=== PATIENT | female | born 1960 | race Caucasian/White ===

== ENCOUNTER 2020-06-15 13:19 | Observation (INO) ==
--- OUTSIDE RECORDS SUMMARY | 2020-06-15 13:21 | External Medical Summary | Continuity of Care Document ---
:1960 Author Name Chris Saavedra, Provider Address Unavailable Unavailable , Care Team Providers Name Role Phone Unavailable Unavailable Unavailable CAROL FRANK Unavailable Unavailable Problems Active medical history not documented Allergies and Adverse Reactions No Known Drug Allergies (Allergy) Medications BenzaClin 1-5 % External Gel MArturoDArturo Refills: 0 Procedures Procedures not documented Immunizations Immunizations not documented Plan of Treatment Planned Observations Planned Goals not documented Results No Known Results Results not documented
--- NOTE | 2020-06-15 13:39 | Emergency Department Note ---
Impression & Plan Palpitations ED Provider Note Provider: Chu Fowler MD DATE OF SERVICE:06/15/2020 CHIEF COMPLAINT: Palpitations HISTORY OF PRESENT ILLNESS: Patient is a 59-year-old female without significant past medical history presenting here today stating that since around 9:00 last night she has had some intermittent fluttering and palpitations in her chest. Denies actual chest pain or shortness of breath. No syncope or near syncope. Denies any abdominal pain nausea or other abnormality. Patient states she is feeling okay but having this odd sensation. Denies any significant use of caffeine or energy drinks. States she had a little bit of wine last night but no significant amount. Denies a history of similar. Patient does report a family history of atrial fibrillation with her mother who is on Coumadin. Patient states several weeks ago she traveled to [place] to visit her son but denies any leg swelling. REVIEW OF SYSTEMS: A total of 10 review of systems was obtained and negative except as stated above in the HPI. PAST MEDICAL HISTORY: As noted above MEDICATIONS: Denies SOCIAL HISTORY: Non-smoker, rare alcohol PHYSICAL EXAM: GENERAL: alert and oriented in no acute distress on stretcher Head: normocephalic and atraumatic EYES: No injection, discharge or icterus. NECK: Trachea midline. LUNGS: Airway patent. No retractions. Breath sounds clear with good air entry bilaterally. HEART: Irregular tachycardic rate and rhythm. No chest wall tenderness ABDOMEN: Soft and non-tender, without guarding or rebound. SKIN: Acyanotic, warm, dry, without rashes EXTREMITIES: Without swelling, tenderness or deformity NEUROLOGICAL: No focal deficits. No aphasia. No facial droop or slurred speech. EK bpm initially in sinus rhythm and then in either atrial fibrillation with RVR versus multiple repetitive PACs. No acute ST segment elevation noted. Normal QRS. CONTINUOUS CARDIAC MONITORING: was ordered and showed a heart rate of 40's-140's bpm in variable sinus bradycardia normal sinus rhythm to atrial fibrillation with rapid ventricular response versus PACs Patient's laboratory studies and imaging reviewed. Differential includes Premature contractions, electrolyte abnormality, cardiac dysrhythmia, thyroid dysfunction, pulmonary embolism, infection, gastr ointestinal, as well as other pathologies. IMPRESSION/MEDICAL DECISION MAKING: Patient presents complaining of palpitations since last night and appears to have new onset of atrial fibrillation with a highly irregular rate. She is in intermittently in rapid ventricular response A. fib versus very frequent PACs and then at a heart rate in the 60s at some points into the 40s. Patient luckily not significantly symptomatic at this point beyond the fluttering palpitation sensation. Basic labs including electrolytes and thyroid study was sent. No significant leukocytosis or anemia. No significant evidence of potassium or magnesium derangement. Troponin undetectable. TSH within normal limits. Chest x-ray without acute pathology per radiology. Discussed with Dr. Kellogg of cardiology case. He recommended observation here in the hospital upon reviewing telemetry and EKG. Will optimize potassium with a small amount of potassium and he states he would likely trial a short acting small amount of metoprolol to see if this helps with symptoms. Discussed with the patient was updated again only having some symptoms of palpitations. She is in agreement with the plan and the hospitalist be contacted for further observation here. DIAGNOSIS: Palpitations DISPOSITION: Hospitalist will evaluate Patient was agreeable with this plan. Past Med/Surg History Medical History No significant past medical history Surgical History Congenital malrotation of intestine Delivery by section Family History Mother Atrial fibrillation Social History Smoking Status: Never smoker Hx Alcohol Use: Yes Alcohol type: wine Alcohol Intake Frequency: 2-3 x/Week Feels Safe at Home: Yes Allergies Allergies Allergy/AdvReac Type Severity Reaction Status Date / Time No Known Allergies Allergy Unverified 06/15/20 14:12 Home Meds Home Medications Medication Instructions Recorded Confirmed conjugated estrogens [Premarin] 1 applic VAGINAL WK 06/15/20 06/15/20 Results & Data (ED) Vital Signs Vital Signs - 24 hr 06/15/20 13:21 06/15/20 13:33 06/15/20 13:59 Temperature 36.7 C Temperature Source Oral Pulse Rate 56 L 91 H 77 Pulse Rate from SpO2 Sensor 68 60 Respiratory Rate 18 18 16 Blood Pressure 153/98 H 160/94 H Blood Pressure Mean 116 128 Pulse Oximetry 99 98 100 Sepsis Recent Fever Within 48 Hours No Sepsis New/Unexplained Change in Mental Status No Sepsis Action Taken by Nursing No Action Required 06/15/20 14:00 06/15/20 14:01 Temperature Temperature Source Pulse Rate 77 96 H Pulse Rate from SpO2 Sensor 58 L 57 L Respiratory Rate 18 13 Blood Pressure 132/76 Blood Pressure Mean 92 Pulse Oximetry 100 99 Sepsis Recent Fever Within 48 Hours Sepsis New/Unexplained Change in Mental Status Sepsis Action Taken by Nursing Laboratory Data Result diagrams: 06/15/20 13:31 06/15/20 13:31 Lab Results 06/15/20 06/15/20 Range/Units 13:31 13:31 WBC 5.66 (4.8-10.8) K/uL RBC 4.79 (4.2-5.4) M/uL Hgb 15.0 (12.0-16.0) g/dL Hct 44.5 (37-47) % MCV 92.9 (80-100) fL MCH 31.3 (25-34) pg MCHC 33.7 (32-36) g/dL RDW Std Deviation 42.3 (36.4-46.3) fL RDW Coeff of Paul 12.5 (11.5-14.5) % Plt Count 235 (130-400) K/uL MPV 9.2 (7.4-10.4) fL Immature Gran % (Auto) 0.0 % Neut % (Auto) 46.0 % Lymph % (Auto) 44.3 % [place] % (Auto) 8.8 % Eos % (Auto) 0.7 % Baso % (Auto) 0.2 % Neut # (Auto) 2.60 (1.4-6.5) K/uL Lymph # (Auto) 2.51 (1.2-3.4) K/uL [place] # (Auto) 0.50 (0.11-0.59) K/uL Eos # (Auto) 0.04 (0-0.5) K/uL Baso # (Auto) 0.01 (0-0.2) K/uL Immature Gran # (Auto) 0.00 (0.00-0.02) K/uL Sodium 140 (136-145) mmol/L Potassium 3.7 (3.5-5.1) mmol/L Chloride 108 H (98-107) mmol/L Carbon Dioxide 27 (21-32) mmol/L Anion Gap 6.0 (3-11) BUN 15 (7-18) mg/dl Creatinine 0.77 (0.6-1.2) mg/dl Est Cr Clr Drug Dosing 81.0 ml/min Est GFR ( Amer) 98.6 Est GFR (Non-Af Amer) 85.1 BUN/Creatinine Ratio 19.5 (10-20) Glucose 92 (70-99) mg/dl Calcium 9.7 (8.5-10.1) mg/dl Magnesium 2.3 (1.8-2.4) mg/dl Total Bilirubin 0.6 (0.2-1) mg/dl AST 21 (15-37) U/L ALT 27 (12-78) U/L Alkaline Phosphatase 71 (45-117) U/L Troponin I < 0.015 (0-0.045) ng/ml Total Protein 7.7 (6.4-8.2) gm/dl Albumin 4.0 (3.4-5.0) gm/dl Globulin 3.7 (2.5-4.0) gm/dl Albumin/Globulin Ratio 1.1 (0.9-2) TSH 1.050 (0.300-4.500) uIu/ml Administered Medications Discontinued Medications Metoprolol Tartrate (Metoprolol Tartrate 25 Mg Tab) 25 mg PO NOW ONE Stop: 06/15/20 14:21 Last Admin: 06/15/20 14:24 Dose: 25 mg Documented by: [id number] Potassium Chloride (Potassium Chloride 20 Meq Tabcr) 40 meq PO NOW STA Stop: 06/15/20 14:23 Last Admin: 06/15/20 14:25 Dose: 40 meq Documented by: [id number] Discharge Plan Visit Data Chief Complaint: Arrhythmia/Palpitations Stated Complaint: HEART PALPITATIONS ED Provider: Chu Fowler Discharge Problem: Palpitations Patient Disposition: Admitted As Inpatient Condition: Good Discharge Instructions Interventions: ED Discharge Assessment Last Done: 06/15/20 15:38
[2020-06-15 13:51] LABS: Hematocrit (blood only) 44.5 % (37-47); Mean Corpuscular Volume 92.9 fL (80-100); Red Blood Count 4.79 M/uL (4.2-5.4); White Blood Count 5.66 K/uL (4.8-10.8)
[2020-06-15 13:52] LABS: Basophils # (auto) 0.01 K/uL (0-0.2); Basophils % (auto) 0.2 %; Eosinophils # (auto) 0.04 K/uL (0-0.5); Eosinophils % (auto) 0.7 %; Lymphocytes # (auto) 2.51 K/uL (1.2-3.4); Lymphocytes % (auto) 44.3 %; Mean Corpuscular Hemoglobin 31.3 pg (25-34); Mean Corpuscular Hgb Conc 33.7 g/dL (32-36); Mean Platelet Volume 9.2 fL (7.4-10.4); Monocytes % (auto) 8.8 %; Platelet Count 235 K/uL (130-400); RDW Coefficient of Variation 12.5 % (11.5-14.5); RDW Standard Deviation 42.3 fL (36.4-46.3)
[2020-06-15 14:07] LABS: Alanine Aminotransferase 27 U/L (12-78); Aspartate Aminotransferase 21 U/L (15-37); BUN Creatinine Ratio 19.5 (10-20); Blood Urea Nitrogen 15 mg/dl (7-18); Calcium 9.7 mg/dl (8.5-10.1); Carbon Dioxide 27 mmol/L (21-32); Chloride 108 mmol/L (98-107); Est GFR (African American) 98.6; Est GFR (Non-African American) 85.1; Glucose 92 mg/dl (70-99); Magnesium 2.3 mg/dl (1.8-2.4); Potassium 3.7 mmol/L (3.5-5.1); Sodium 140 mmol/L (136-145)
[2020-06-15 14:18] LABS: Albumin Globulin Ratio 1.1 (0.9-2); Alkaline Phosphatase 71 U/L (45-117); Bilirubin,Total 0.6 mg/dl (0.2-1); Globulin 3.7 gm/dl (2.5-4.0); Total Protein 7.7 gm/dl (6.4-8.2); Troponin I < 0.015 ng/ml (0-0.045)
[2020-06-15] MEDS ORDERED: METOPROLOL TARTRATE 25 MG TAB PO ONE (14:20)
[2020-06-15] MEDS ORDERED: POTASSIUM CHLORIDE 20 MEQ TABCR PO STA (14:22)
--- NOTE | 2020-06-15 14:28 | Electrocardiogram Report ---
Test Reason : Blood Pressure : / mmHG Vent. Rate : 138 BPM Atrial Rate : 166 BPM P-R Int : 000 ms QRS Dur : 084 ms QT Int : 326 ms P-R-T Axes : 000 083 065 degrees QTc Int : 493 ms Sinus rhythm with frequent , and consecutive Premature atrial complexes Nonspecific ST abnormality Abnormal ECG No previous ECGs available Confirmed by Edwar Rodriguez ([id number]) on 06/15/2020 2:28:13 PM Referred By: Allan Martin Confirmed By:Edwar Rodriguez
--- NOTE | 2020-06-15 15:01 | XRay Report ---
XR chest 1V portable CLINICAL HISTORY: palpitations COMPARISON STUDY: No previous studies for comparison. FINDINGS: Lung volumes are normal. Lungs are clear. There is no pneumothorax or pleural effusion. Car diac size is normal. Mediastinal contours are normal. There is no evidence for pulmonary edema. IMPRESSION: No acute cardiopulmonary findings. ACT 112: Negative or not required by law. Electronically signed by: Chele Sharp M.D. 06/15/2020 3:00 PM
--- NOTE | 2020-06-15 15:02 | History & Physical Report ---
Date of Service June 15, 2020 Assessment & Plan (1) Atrial fibrillation: This is a 59-year-old female with no known significant past medical history who presents with intermittent palpitations starting last evening around 9:00pm was found to have atrial fibrillation. -Became symptomatic with palpitations last night around 2100. EKG with heart rate of 138 bpm with sinus rhythm with frequent and consecutive PACs. Nonspecific ST abnormality -Afebrile, no leukocytosis. Potassium and magnesium within normal limits. TSH within normal limits. Initial troponin negative -Patient with family history of atrial fibrillation (mom). Denies any personal history or significant caffeine use. Drinks wine 2-3x/week -ED provider discussed with studio set up worker on-call, Dr. Kellogg, who recommends observing on telemetry -Given Lopressor 25mg PO x 1 in ED as well as potassium chloride 40mg PO x 1. HR ranging from 56-138 since arrival -2D echo ordered. Will repeat troponin once more. Monitor on telemetry. EKG in AM. Routine cardiology consult -Will discuss systemic anticoagulation with cardiology DVT Ppx: SCDs for now Code status: FULL PCP: Veronica Dispo: Observe med tele. Plan to return home once medically stable. Patient seen in collaboration with Dr. Ma. Please see addendum. History of Present Illness Primary Care Provider: Allan Martin MD This is a 59-year-old female with no known significant past medical history who presents with intermittent palpitations starting last evening around 9:00. Patient was in normal state of health and had a small amount of wine prior to developing palpitations. Denies any associated lightheadedness, visual changes, near syncope, chest pain or shortness of breath. Denies having symptoms like this in the past. Today denies any significant use of caffeine or energy drinks. Last traveled several weeks ago to [place]. Recent viral illnesses or tick bites. Does have family history of atrial fibrillation with mom on anticoagulation. Only medication is Premarin gel. Denies any fever, chills, cough, nausea, vomiting, abdominal pain, dysuria, diarrhea or constipation. Allergies Allergy/AdvReac Type Severity Reaction Status Date / Time No Known Allergies Allergy Unverified 06/15/20 14:12 Home Medications Home Medications Medication Instructions Recorded Confirmed Type conjugated estrogens [Premarin] 1 applic VAGINAL WK 06/15/20 06/15/20 History Past Med/Surg History Medical History No significant past medical history Surgical History Congenital malrotation of intestine Delivery by section Family History Mother Atrial fibrillation Social History Smoking Status: Never smoker Hx Alcohol Use: Yes Alcohol type: wine Alcohol Intake Frequency: 2-3 x/Week Feels Safe at Home: Yes Review of Systems Review of Systems: At least ten systems reviewed and negative except as noted in the HPI. Physical Exam Physical Exam: General Appearance: WD/WN, vitals as above, NAD, sitting up in bed, pleasant, conversing easily Head: normocephalic, atraumatic Eyes: normal inspection, PERRL, conjunctivae normal, anicteric sclerae ENT: external ear and nose normal, oropharynx normal Neck: normal visual inspection, trachea midline, no thyromegaly Respiratory: normal respiratory effort, lungs clear to auscultation, no wheeze, rales, rhonchi. No accessory muscle use Cardiovascular: irregular rate & rhythm, no murmur appreciated, normal peripheral pulses, no BLE edema. Vessels: no JVD Chest: normal inspection of chest Abdomen/GI: normal bowel sounds, soft, nontender, no hepatosplenomegaly Extremities/Musculoskeletal: no cyanosis or clubbing, extremities motor strength 5/5 Neurologic: PERRL, EOMI, accommodation nl, no face palsy, no dysarthria, CN's II-XI intact bilaterally and moves all extremities Psychiatric: A+Ox3, euthymic affect Skin: no rashes, normal color, warm/dry Results & Data Results & Data ([place]) Vital Signs (Past 12 Hours) Vital Signs Temp Pulse Resp BP Pulse Ox 06/15/20 14:01 96 H 13 132/76 99 06/15/20 14:00 77 18 100 06/15/20 13:59 77 16 100 06/15/20 13:33 91 H 18 160/94 H 98 06/15/20 13:21 36.7 C 56 L 18 153/98 H 99 Laboratory Results Short CBC 06/15/20 Range/Units 13:31 WBC 5.66 (4.8-10.8) K/uL Hgb 15.0 (12.0-16.0) g/dL Hct 44.5 (37-47) % Plt Count 235 (130-400) K/uL BMP 06/15/20 13:31 Sodium 140 Potassium 3.7 Chloride 108 H Carbon Dioxide 27 BUN 15 Creatinine 0.77 Glucose 92 Calcium 9.7 Cardiac Enzymes 06/15/20 Range/Units 13:31 Troponin I < 0.015 (0-0.045) ng/ml Liver Function 06/15/20 Range/Units 13:31 Total Bilirubin 0.6 (0.2-1) mg/dl AST 21 (15-37) U/L ALT 27 (12-78) U/L Alkaline Phosphatase 71 (45-117) U/L Albumin 4.0 (3.4-5.0) gm/dl Diagnostic Findings CXR: Pending ECG Indication: palpitations Rhythm: sinus rhythm Findings: + PAC Code Status & VTE Plan VTE Prophylaxis Plan VTE Prophylaxis will be ordered: Yes Supervising Physician Co-Signing Physician Notes I, Dr. Duncan Ma, have seen and examined the patient with physician professional nursing assistant and would like to comment that On physical exam General: no acute distress Heart: irregular rhythm Lungs: normal breath sounds, no wheezing Abdomen: soft, nontender, positive bowel sounds Extremities: no edema Assessment and Plan -This is a 59 year old female with no known personal cardiac history (There is family history of atrial fibrillation with her mother) and the patient started to experience palpitations that started on 06/14/2020 evening. -normal TSH -patient given oral potassium and oral metoprolol in the ED -observe on telemetry overnight, obtain echocardiogram, formal cardiology consultation pending -SCDs for now and defer to cardiology on choice of systemic anticoagulation -agree with other assessment and plans as documented by physician professional nursing assistant
[2020-06-15] MEDS ORDERED: POLYETHYLENE (MIRALAX) 17 GM PACK PO PRN (16:01)
[2020-06-15] MEDS ORDERED: ONDANSETRON INJ 2 MG/ML 2 ML VIAL IV PRN (16:01)
[2020-06-15] MEDS ORDERED: ACETAMINOPHEN 325 MG TAB PO PRN (16:01)
[2020-06-16 05:54] LABS: Hematocrit (blood only) 43.6 % (37-47); Hemoglobin 14.3 g/dL (12.0-16.0); Mean Corpuscular Hemoglobin 31.2 pg (25-34); Mean Corpuscular Hgb Conc 32.8 g/dL (32-36); Mean Corpuscular Volume 95.2 fL (80-100); Mean Platelet Volume 9.3 fL (7.4-10.4); Platelet Count 234 K/uL (130-400); RDW Coefficient of Variation 12.7 % (11.5-14.5); RDW Standard Deviation 44.4 fL (36.4-46.3); Red Blood Count 4.58 M/uL (4.2-5.4); White Blood Count 4.77 K/uL (4.8-10.8)
[2020-06-16 06:32] LABS: BUN Creatinine Ratio 16.5 (10-20); Creatinine Clr Calc Pharmacy 63.8 ml/min; Est GFR (African American) 81.7; Est GFR (Non-African American) 70.5; Potassium 4.9 mmol/L (3.5-5.1)
[2020-06-16] MEDS ORDERED: ATENOLOL 25 MG TABLET PO SCH (11:15)
--- NOTE | 2020-06-16 11:17 | Cardiology Consultation ---
Date of Consultation June 16, 2020 Assessment & Plan (1) Premature atrial contractions: The patient has been found to have frequent symptomatic supraventricular ectopy, and perhaps short salvos of supraventricular tachycardia. Although brief episodes of atrial fibrillation cannot be excluded, her [id number] score is only 1 for risk factor of "female "sex and therefore risk of cardioembolic stroke is felt to be low. The most recent guidelines suggest that the prophylactic benefit of aspirin and stroke prevention in such patients is negligible. I do not think her telemetry findings are suggestive of a tachycardia- bradycardia syndrome, as her relative bradycardia is consistent with her history of being very physically active. She has no lightheadedness or dizziness. No pauses or high-grade AV block noted this morning. And although her morning EKG revealed sinus bradycardia at 43 bpm, she was resting at that time. She had been treated with a dose of metoprolol tartrate yesterday and she felt that this perhaps improved her symptoms. We will proceed with a cautious trial of atenolol 25 mg by mouth daily. She was counseled that should she feel lightheaded or dizzy on this medication she may cut it in half and take 1/2 tablet. Cardiology follow-up to be pursued in [address] Kellogg or partner. History of Present Illness Attending Physician: Abdoulaye Campo MD History of Present Illness Idania Chahal is a 59 year old female seen in cardiology consultation per the request of Sabiha Meier PA-C of the [facility] for the evaluation of palpitations. The patient describes herself as having been in normal health until 2 evenings ago when she started noticing onset of palpitations. This was not associated with any particular emotional or physical stress or a change in her diet. She consistently consumes rare occasional alcohol in the form of wine, and 1 or a maximum of 2 cups of coffee per day. She describes having a sensation of feeling a "flutter "in her chest as well as a "pounding "sensation. Upon arrival to the emergency department yesterday afternoon she was found to have sinus rhythm, sinus arrhythmia, frequent premature atrial contractions, and short salvos of what I feel is supraventricular tachycardia. An EKG performed in the emergency department dated 06/15/2020 at 1328 exemplifies sinus rhythm with frequent consecutive premature atrial contractions. When she was in sinus rhythm, she had been observed to have a heart rate in the 40s yesterday. Telemetry overnight last night for the most part reveals sinus bradycardia in the range of 48 to 52 bpm. During sleep her heart rate was as low as the 30s, but once again sinus bradycardia with no AV block. She denies any history of lightheadedness, dizziness, syncope or near syncope. She describes herself as being physically active. 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 She has been exercising regularly running 3 miles per day 3 days/week and walking 3 days/week. SOCIAL HISTORY: She lives with her . She has 2 sons, one of which is in college, and one has finished college and is a young professional. She is a non-smoker. And as noted above, drinks 1 or maximum of 2 cups of coffee per day, and occasional wine. FAMILY HISTORY: She has a family history of atria fibrillation in her mother, who follows with Dr Sandra of our practice. Allergies Allergy/AdvReac Type Severity Reaction Status Date / Time No Known Allergies Allergy Unverified 06/15/20 14:12 Home Medications Home Medications Medication Instructions Recorded Confirmed Type conjugated estrogens [Premarin] 1 applic VAGINAL WK 06/15/20 06/15/20 History Patient History Medical History No significant past medical history Surgical History Congenital malrotation of intestine Delivery by section Family History Mother Atrial fibrillation Social History Smoking Status: Never smoker Hx Alcohol Use: Yes Alcohol type: wine Alcohol Intake Frequency: 2-3 x/Week Hx Substance Use: No Preferred Language: Upper Sorbian Communication Ability: Effective Mold Unloader Required: No Beliefs That Will Affect Care: None Current Living Situation: Spouse Other Information That Helps Us Care for You: No Feels Safe at Home: Yes Safety Concerns: Feels Safe At This Time Assistive Devices: None Review of Systems Review of Systems: All systems reviewed & are unremarkable except as noted in HPI & below Physical Exam Physical Exam: Temp Pulse Resp BP Pulse Ox 36.8 C 46 L 16 92/59 L 99 06/16/20 07:41 06/16/20 09:00 06/16/20 07:41 06/16/20 07:41 06/16/20 07:41 Constitutional: WD/WN, vitals as above Respiratory: normal respiratory effort, lungs clear to auscultation Cardiovascular: RRR, no murmur, no edema Gastrointestinal (Abdomen): normal bowel sounds, soft, nontender, no hepatosplenomegaly Musculoskeletal: no cyanosis or clubbing, extremities motor strength 5/5 Neurologic: PERRL, EOMI, accommodation nl, no face palsy, no dysarthria Results & Data ([facility]) Vital Signs (Past 12 Hours) Vital Signs Temp Pulse Pulse Resp BP Pulse Ox 06/16/20 09:00 46 L 06/16/20 07:41 36.8 C 60 16 92/59 L 99 06/16/20 04:00 36.5 C 60 18 101/64 97 06/16/20 01:53 44 L 06/15/20 23:08 36.6 C 59 L 18 108/64 96 Laboratory Results Cardiac Enzymes 06/15/20 06/15/20 Range/Units 13:31 19:32 AST 21 (15-37) U/L Troponin I < 0.015 < 0.015 (0-0.045) ng/ml CBC 06/15/20 06/16/20 Range/Units 13:31 05:32 WBC 5.66 4.77 L (4.8-10.8) K/uL RBC 4.79 4.58 (4.2-5.4) M/uL Hgb 15.0 14.3 (12.0-16.0) g/dL Hct 44.5 43.6 (37-47) % Plt Count 235 234 (130-400) K/uL Neut # (Auto) 2.60 (1.4-6.5) K/uL Lymph # (Auto) 2.51 (1.2-3.4) K/uL [place] # (Auto) 0.50 (0.11-0.59) K/uL Eos # (Auto) 0.04 (0-0.5) K/uL Baso # (Auto) 0.01 (0-0.2) K/uL Comprehensive Metabolic Panel 06/15/20 06/16/20 Range/Units 13:31 05:32 Sodium 140 140 (136-145) mmol/L Potassium 3.7 4.9 D (3.5-5.1) mmol/L Chloride 108 H 109 H (98-107) mmol/L Carbon Dioxide 27 32 (21-32) mmol/L BUN 15 15 (7-18) mg/dl Creatinine 0.77 0.90 (0.6-1.2) mg/dl Glucose 92 94 (70-99) mg/dl Calcium 9.7 9.0 (8.5-10.1) mg/dl AST 21 (15-37) U/L ALT 27 (12-78) U/L Alkaline Phosphatase 71 (45-117) U/L Total Protein 7.7 (6.4-8.2) gm/dl Albumin 4.0 (3.4-5.0) gm/dl Intake and Output 06/15/20 06/16/20 06/16/20 22:59 06:59 14:59 Intake Total 250 / 400 150 / 400 Balance 250 / 400 150 / 400 Intake: Oral 250 / 400 150 / 400 Other: Weight 70.845 kg 70.9 kg Weight Measurement Method Standing Scale Standing Scale Diagnostic Findings Presenting EKG as noted in the HPI, repeat EKG this morning sinus bradycardia at 43 bpm. Telemetry included episodes of sinus rhythm with sinus arrhythmia, frequent premature atrial contractions and premature atrial contractions in a pattern of atrial bigeminy. EKG performed this morning and reviewed independently revealed mild concentric left ventricular hypertrophy, with normal LV wall motion, LVEF in the range of 55 to 60%. Right ventricular chamber size and systolic function are normal. No significant valvular heart disease.
--- NOTE | 2020-06-16 13:17 | Electrocardiogram Report ---
Test Reason : Blood Pressure : / mmHG Vent. Rate : 043 BPM Atrial Rate : 043 BPM P-R Int : 184 ms QRS Dur : 094 ms QT Int : 466 ms P-R-T Axes : 064 084 074 degrees QTc Int : 393 ms Marked sinus bradycardia Abnormal ECG When compared with ECG of 15-JUN-2020 13:28, Significant changes have occurred Confirmed by Edwar Rodriguez ([id number]) on 06/16/2020 1:17:49 PM Referred By: Allan Martin Confirmed By:Edwar Rodriguez
--- NOTE | 2020-06-16 14:08 | Hospitalist Progress Note ---
Date of Service June 16, 2020 Assessment & Plan (1) Premature atrial contractions: This is a 59-year-old female with no known significant past medical history who presents with intermittent palpitations starting last evening around 9:00pm was found to have possible atrial fibrillation. -Atrial fibrillation has been ruled out -Became symptomatic with palpitations last night around 2100. EKG with heart rate of 138 bpm with sinus rhythm with frequent and consecutive PACs. Nonspecific ST abnormality -Afebrile, no leukocytosis. Potassium and magnesium within normal limits. TSH within normal limits. Initial troponin negative -Patient with family history of atrial fibrillation (mom). Denies any personal history or significant caffeine use. Drinks wine 2-3x/week -Received Lopressor 25mg PO x 1 in ED as well as potassium chloride 40mg PO x 1. HR ranging from 56-138 since arrival -2D echo showed-concentric LV hypertrophy, LV wall motion is normal with EF of 55 to 60%, LV diastolic function is not graded due to indeterminate Doppler data related to the irregular rhythm, RV chamber size and systolic function is normal and there is no significant valvular heart disease -She had cardiology input and recommendation -Remains in sinus rhythm today with bradycardia likely secondary to physical activity -Started on a small dose of beta-ruslan with atenolol 25 mg once a day -Remains free of symptoms and will be discharged this afternoon Admission and Anticipated Discharge Date Admission Date: June 15, 2020 Subjective 06/16/2020 The patient was seen and examined in medical telemetry unit She denies any symptoms of palpitation and/or shortness of breath while having chest pain She has been ambulating in the hallway and in the room without any symptoms She will be discharged home this afternoon Review of Systems Review of Systems: All systems reviewed and are unremarkable except as noted below Cardiovascular: no chest pain, no dyspnea and no palpitations Physical Exam Physical Exam: Lying in bed without any acute distress Constitutional: well developed and well nourished; no acute distress and not ill appearing Eyes: PERRL, conjunctivae normal, anicteric sclerae ENMT: external ear and nose normal, oropharynx normal Neck: trachea midline, no thyromegaly Respiratory: normal respiratory effort; no respiratory distress Auscultation: lungs clear to auscultation bilaterally Cardiovascular: Rate/Rhythm: regular rate and regular rhythm Heart Sounds: no murmur Gastrointestinal (Abdomen): Inspection/Auscultation: abdomen normal to inspection; abdomen not distended Percussion/Palpation: abdomen soft; abdomen nontender Musculoskeletal: No acute arthritis involving any joint Neurologic: moves all extremities; no focal motor deficits Psychiatric: A+Ox3, euthymic affect Lymphatic: no cervical or axillary lymphadenopathy Results & Data Results & Data ([facility]) Vital Signs (Past 12 Hours) Vital Signs Temp Pulse Pulse Resp BP Pulse Ox 06/16/20 11:46 65 20 101/63 06/16/20 11:19 36.6 C 65 16 92/60 L 97 06/16/20 09:00 46 L 06/16/20 07:41 36.8 C 60 16 92/59 L 99 06/16/20 04:00 36.5 C 60 18 101/64 97 Laboratory Results Short CBC 06/16/20 Range/Units 05:32 WBC 4.77 L (4.8-10.8) K/uL Hgb 14.3 (12.0-16.0) g/dL Hct 43.6 (37-47) % Plt Count 234 (130-400) K/uL [facility] 06/16/20 05:32 Sodium 140 Potassium 4.9 D Chloride 109 H Carbon Dioxide 32 BUN 15 Creatinine 0.90 Glucose 94 Calcium 9.0 Cardiac Enzymes 06/15/20 Range/Units 19:32 Troponin I < 0.015 (0-0.045) ng/ml Medications Administered Current Inpatient Medications Acetaminophen (Acetaminophen 325 Mg Tab) 650 mg PO Q4H PRN PRN Reason: Pain or Fever Stop: 07/15/20 16:00 Atenolol (Atenolol 25 Mg Tablet) [address] [facility] Stop: 07/16/20 11:14 Last Admin: 06/16/20 11:44 Dose: 25 mg Documented by: Polyethylene Glycol (Polyethylene (Miralax) 17 Gm Pack) 17 gm PO DAILY PRN PRN Reason: Constipation Stop: 07/15/20 16:00
--- NOTE | 2020-06-17 08:38 | Discharge Summary ---
Date of Service June 17, 2020 Admission HPI Per Admitting Provider This is a 59-year-old female with no known significant past medical history who presents with intermittent palpitations starting last evening around 9:00. Patient was in normal state of health and had a small amount of wine prior to developing palpitations. Denies any associated lightheadedness, visual changes, near syncope, chest pain or shortness of breath. Denies having symptoms like this in the past. Today denies any significant use of caffeine or energy drinks. Last traveled several weeks ago to [place]. Recent viral illnesses or tick bites. Does have family history of atrial fibrillation with mom on anticoagulation. Only medication is Premarin gel. Denies any fever, chills, cough, nausea, vomiting, abdominal pain, dysuria, diarrhea or constipation. Admission Exam Per Admitting Provider Physical Exam: General Appearance: WD/WN, vitals as above, NAD, sitting up in bed, pleasant, conversing easily Head: normocephalic, atraumatic Eyes: normal inspection, PERRL, conjunctivae normal, anicteric sclerae ENT: external ear and nose normal, oropharynx normal Neck: normal visual inspection, trachea midline, no thyromegaly Respiratory: normal respiratory effort, lungs clear to auscultation, no wheeze, rales, rhonchi. No accessory muscle use Cardiovascular: irregular rate & rhythm, no murmur appreciated, normal peripheral pulses, no BLE edema. Vessels: no JVD Chest: normal inspection of chest Abdomen/GI: normal bowel sounds, soft, nontender, no hepatosplenomegaly Extremities/Musculoskeletal: no cyanosis or clubbing, extremities motor strength 5/5 Neurologic: PERRL, EOMI, accommodation nl, no face palsy, no dysarthria, CN's II-XI intact bilaterally and moves all extremities Psychiatric: A+Ox3, euthymic affect Skin: no rashes, normal color, warm/dry Principal Diagnosis Premature atrial contractions Discharge Exam Constitutional well developed and well nourished; no acute distress and not ill appearing Eyes PERRL, conjunctivae normal, anicteric sclerae ENMT external ear and nose normal, oropharynx normal Neck trachea midline, no thyromegaly Respiratory normal respiratory effort; no respiratory distress Auscultation: lungs clear to auscultation bilaterally Cardiovascular Rate/Rhythm: regular rate and regular rhythm Heart Sounds: no murmur Gastrointestinal (Abdomen) Inspection/Auscultation: abdomen normal to inspection; abdomen not distended Percussion/Palpation: abdomen soft; abdomen nontender Neurologic moves all extremities; no focal motor deficits Psychiatric A+Ox3, euthymic affect Lymphatic no cervical or axillary lymphadenopathy Discharge Data Allergies Allergy/AdvReac Type Severity Reaction Status Date / Time No Known Allergies Allergy Unverified 06/15/20 14:12 Consultations 06/15/20 14:32 ED Decision to Admit Stat 06/15/20 14:37 Consult Cardiology Routine Hospital Course (1) Premature atrial contractions: This is a 59-year-old female with no known significant past medical history who presents with intermittent palpitations starting last evening around 9:00pm was found to have possible atrial fibrillation. -Atrial fibrillation has been ruled out -Became symptomatic with palpitations last night around 2100. EKG with heart rate of 138 bpm with sinus rhythm with frequent and consecutive PACs. Nonspecific ST abnormality -Afebrile, no leukocytosis. Potassium and magnesium within normal limits. TSH within normal limits. Initial troponin negative -Patient with family history of atrial fibrillation (mom). Denies any personal history or significant caffeine use. Drinks wine 2-3x/week -Received Lopressor 25mg PO x 1 in ED as well as potassium chloride 40mg PO x 1. HR ranging from 56-138 since arrival -2D echo showed-concentric LV hypertrophy, LV wall motion is normal with EF of 55 to 60%, LV diastolic function is not graded due to indeterminate Doppler data related to the irregular rhythm, RV chamber size and systolic function is normal and there is no significant valvular heart disease -She had cardiology input and recommendation -Remains in sinus rhythm today with bradycardia likely secondary to physical activity -Started on a small dose of beta-ruslan with atenolol 25 mg once a day -Remains free of symptoms and will be discharged this afternoon Total Time Total Time Spent Total Time Spent (In Minutes): 35 minutes Total Time Includes: Examination of the Patient, Discharge Planning, Medication Reconciliation and Communication With Other Providers Discharge Plan Discharge Items Patient Disposition: Home - Self-Care Reason For Visit: A FIB WITH RVR Discharge Diagnosis: Premature atrial contractions Condition on Discharge: Good Activity: Resume your previous activity Non-emergency contact: Primary Care Provider Call non-emergency contact if: you have any medication questions and your symptoms worsen Follow-up/Referrals: Allan Martin MD [Primary Care Provider] - (Date & Time 06/22/2020 11:20 AM Provider Allan Martin MD [facility] ) Diet: Regular Addtl Attending Provider Instructions: Please try to cut down the use of alcohol and coffee if you are drinking any [facility] will call you with an appointment in 1 month. Pending Studies at Discharge: No Stand-Alone Forms: My [facility] [email or web address], Smoking Cessation Medications and DC Order Prescriptions: New atenolol 25 mg Tablet 25 mg PO QAM 30 Days Qty: 30 RF: 0 Continued Premarin 0.625 mg/gram cream 1 applic vaginal WK RF: 0 Discharge Orders: Discharge Order (Routine); Ordered 06/16/20 Ordered By: Abdoulaye Campo Admission Data Admit Date/Time: 06/15/20 14:36 Attending Provider: Abdoulaye Campo Admit Provider: Duncan Ma Primary Care Provider: Allan Martin Other Providers: Roby Kellogg ; Abdoulaye Capmo Other Interventions: Discharge Summary Assessment (RN) Last Done: 06/16/20 15:39
== END 2020-06-16 16:23 | disposition home or self-care (01) ==
LOC: 2W 13:19 → ED 13:19 → SUATTDRO 14:36 → 2W 15:38

== ENCOUNTER 2021-11-25 14:03 | Inpatient (IN) ==
[2021-11-25] MEDS ORDERED: ONDANSETRON INJ 2 MG/ML 2 ML VIAL IV STA (14:37)
[2021-11-25] MEDS ORDERED: SODIUM CHLORIDE 0.9% 1000ML 1,000 ML IV STA (14:37)
[2021-11-25] MEDS ORDERED: KETOROLAC TROMETHAMINE 15 MG/ML VIAL IV STA (14:37)
--- NOTE | 2021-11-25 14:50 | Emergency Department Note ---
History of Present Illness General Chief complaint: Abdominal Pain Stated complaint: ABDOMINAL PAIN Time Seen by Provider: 11/25/21 14:10 History of Present Illness Maximum Pain Intensity: 8 This is a 60 year old female with a history of congenital malrotation of intestine requiring surgery at age 3 months who presents with lower abdominal pain that began acutely yesterday. The pain comes and goes, lasts about 5 seconds when bad, and then mostly resolves for several minutes until it builds again. She has noticed that laying flat seems to make the pain worse, standing upright or walking improves the pain. She endorses some ongoing nausea, but has not vomited. States that she has no appetite and is probably dehydrated because she has not been eating or drinking much since yesterday Has not had any changes in her bowel movements, denies any diarrhea or constipation. Patient offers that this has happened to her in the past although she has not been evaluated in the emergency department at that time. Her primary care provider thinks this may be secondary to her prior abdominal surgery, but she has never seen a surgeon or GI for the symptoms. She did have a CT scan for kidney stone about 3 months ago. She denies any fever, chills, congestion, sore throat, cough, shortness of breath, chest pain, dysuria, hematuria, diarrhea, constipation, changes in bowel habits, urinary frequency or hesitancy, weakness, syncope. Only other abdominal surgery is a . Home Medications Medication Instructions Recorded Confirmed Type conjugated estrogens 0.625 mg/gram 1 applic VAGINAL WK 06/15/20 11/25/21 History vaginal cream (Premarin) atenolol 25 mg tablet 25 mg PO DAILY 11/25/21 11/25/21 History Allergies Allergy/AdvReac Type Severity Reaction Status Date / Time No Known Allergies Allergy Verified 11/25/21 14:59 Past Med/Surg History Medical History History of PSVT (paroxysmal supraventricular tachycardia) Surgical History Congenital malrotation of intestine Delivery by section History of appendectomy Family History Mother Atrial fibrillation Social History Smoking Status: Never smoker Hx Alcohol Use: Yes Alcohol type: wine Alcohol Intake Frequency: 2-3 x/Week Hx Substance Use: No Preferred Language: Mosotho Communication Ability: Effective [employer] Required: No Beliefs That Will Affect Care: None Current Living Situation: Spouse Feels Safe at Home: Yes Assistive Devices: None Review of Systems See HPI for pertinent positives & negatives. and A total of 10 systems reviewed and were otherwise negative Physical Exam Vital Signs Vital Signs - 24 hr 11/25/21 14:06 11/25/21 16:00 11/25/21 18:30 Temperature 97.3 F L Temperature Source Temporal Artery Scan Pulse Rate 100 H Pulse Rate [Left Finger] 67 61 Pulse Rhythm [Left Finger] Regular Pulse Strength [Left Finger] Normal Respiratory Rate 16 20 20 Respiratory Effort / Characteristics Non-Labored Spontaneous Respiratory Depth Normal Respiratory Pattern Regular Blood Pressure 118/77 Blood Pressure [Left Arm] 125/73 115/72 Blood Pressure Mean 90 Blood Pressure Mean [Left Arm] 90 86 Blood Pressure Position [Left Arm] Lying Lying Pulse Oximetry 100 99 100 Oxygen Delivery Method Room Air Room Air Room Air Sepsis Recent Fever Within 48 Hours No Sepsis New/Unexplained Change in Mental Status No Sepsis Action Taken by Nursing No Action Required CONSTITUTIONAL: Well developed, well nourished, in mild distress secondary to abdominal pain. HEAD: Normocephalic, atraumatic. EYES: conjunctivae normal, extraocular muscles intact. ENMT: External ears normal. Nose with normal external appearance, no congestion. Oral mucous membranes dry. Oropharynx otherwise normal. NECK: Full active range of motion. RESPIRATORY: Breathing unlabored and symmetric. Lungs clear to auscultation bilaterally. No wheeze, rales, or rhonchi. CARDIOVASCULAR: Regular rate and rhythm. No murmurs, rubs, or gallops. ABDOMEN: Normal bowel sounds. Prior vertical abdominal scar located on right abdomen with no erythema although this area is tender to palpation. No peritonitis. No obvious masses. No CVA tenderness bilaterally. Negative McBurney's sign. Negative rebound tenderness. Negative psoas or straight leg raise. MUSCULOSKELETAL: Moves all extremities at all joints without pain or difficulty. No cyanosis or edema. Back with full range of motion. SKIN: [place], warm, dry. NEUROLOGIC: Alert and oriented x 3. No acute motor or sensory deficits. Cranial nerves grossly intact. PSYCHIATRIC: Appropriate. Normal affect. Course Reevaluation(s) Reevaluation #1: Reevaluated patient at bedside. She is resting more comfortably after some IV fluids, Zofran, Toradol. Not requiring any additional pain medication. Discussed labs and imaging. General surgery consulted based on CT findings partial small bowel obstruction. Consultations Consultation #1: Spoke with Maribell (general surgery) who requests that the hospitalist admit the patient and consult them and they will follow the case, hoping that it resolves on its own. She will be down to see the patient at bedside. Campus Coordinator is aware Consultation #2: Spoke with Adrianna Andre with [facility] who agrees to admit the patient under DrArturo Hood Administered Medications Discontinued Medications Sodium Chloride (Nss 1000ml) 1,000 mls @ 999 mls/hr IV .Q1H1M STA Stop: 11/25/21 15:37 Last Infusion: 11/25/21 15:51 Dose: 0 mls/hr Documented by: [id number] Admin: 11/25/21 14:50 Dose: 999 mls/hr Documented by: [id number] Sodium Chloride (Nss) 500 mls @ 999 mls/hr IV .Q31M ONE Stop: 11/25/21 16:52 Last Infusion: 11/25/21 16:57 Dose: 0 mls/hr Documented by: [id number] Admin: 11/25/21 16:26 Dose: 999 mls/hr Documented by: [id number] Ioversol (Optiray 320 100ml) 94 ml IV ONCE ONE Stop: 11/25/21 16:06 Last Admin: 11/25/21 16:06 Dose: 94 ml Documented by: [id number] Ketorolac Tromethamine (Ketorolac Tromethamine 15 Mg/Ml Vial) 15 mg IV NOW STA Stop: 11/25/21 14:38 Last Admin: 11/25/21 14:50 Dose: 15 mg Documented by: [id number] Ondansetron HCl (Ondansetron Inj 2 Mg/Ml 2 Ml Vial) 4 mg IV NOW STA Stop: 11/25/21 14:38 Last Admin: 11/25/21 14:50 Dose: 4 mg Documented by: [id number] Medical Decision Making Laboratory Data Result diagrams: 11/25/21 14:43 11/25/21 14:43 Lab Results 11/25/21 11/25/21 11/25/21 Range/Units 14:43 14:43 14:43 WBC 7.53 (4.8-10.8) K/uL RBC 5.12 (4.2-5.4) M/uL Hgb 16.5 H (12.0-16.0) g/dL Hct 48.2 H (37-47) % MCV 94.1 (80-100) fL MCH 32.2 (25-34) pg MCHC 34.2 (32-36) g/dL RDW Std Deviation 43.2 (36.4-46.3) fL RDW Coeff of Paul 12.6 (11.5-14.5) % Plt Count 249 (130-400) K/uL MPV 9.0 (7.4-10.4) fL Immature Gran % (Auto) 0.1 % Neut % (Auto) 68.4 % Lymph % (Auto) 21.6 % [place] % (Auto) 8.9 % Eos % (Auto) 0.9 % Baso % (Auto) 0.1 % Neut # (Auto) 5.14 (1.4-6.5) K/uL Lymph # (Auto) 1.63 (1.2-3.4) K/uL [place] # (Auto) 0.67 H (0.11-0.59) K/uL Eos # (Auto) 0.07 (0-0.5) K/uL Baso # (Auto) 0.01 (0-0.2) K/uL Immature Gran # (Auto) 0.01 (0.00-0.02) K/uL Sodium 136 (136-145) mmol/L Potassium 4.2 (3.5-5.1) mmol/L Chloride 102 (98-107) mmol/L Carbon Dioxide 25 (21-32) mmol/L Anion Gap 9 (3-11) BUN 15 (6-23) mg/dl Creatinine 0.80 (0.6-1.2) mg/dl Est Cr Clr Drug Dosing 70.9 ml/min Est GFR ( Amer) 93.5 ml/min Est GFR (Non-Af Amer) 80.7 ml/min BUN/Creatinine Ratio 18.8 (10-20) Glucose 101 H (70-99(Fasting)) mg/dl Calcium 9.7 (8.5-10.1) mg/dl Total Bilirubin 1.1 H (0.2-1.0) mg/dl AST 19 (13-39) U/L ALT 18 (7-52) U/L Alkaline Phosphatase 59 (34-104) U/L Total Protein 7.4 (6.0-8.3) gm/dl Albumin 4.5 (3.4-5.0) gm/dl Globulin 2.9 (2.5-4.0) gm/dl Albumin/Globulin Ratio 1.6 (0.9-2) Lipase 12 (11-82) U/L Urine Color Dark Yellow Urine Appearance Clear (Clear) Urine pH 5.5 (4.5-7.5) Ur Specific [place] 1.027 (1.000-1.030) Urine Protein Trace H (Negative) Urine Glucose (UA) Negative (Negative) Urine Ketones 2+ H (Negative) Urine Blood 3+ H (Negative) Urine Nitrite Negative (Negative) Urine Bilirubin Negative (Negative) Urine Urobilinogen Negative (Negative) Ur Leukocyte Esterase Negative (Negative) Urine WBC (Auto) 1-5 (0-5) /hpf Urine RBC (Auto) 10-30 H (0-4) /hpf U Hyaline Cast (Auto) 1-5 (0-5) /lpf U Epithel Cells (Auto) >30 H (0-5) /lpf Urine Bacteria (Auto) Negative (Negative) SARS-CoV-2, RNA, NAAT (NEGATIVE) 11/25/21 Range/Units 17:31 WBC (4.8-10.8) K/uL RBC (4.2-5.4) M/uL Hgb (12.0-16.0) g/dL Hct (37-47) % MCV (80-100) fL MCH (25-34) pg MCHC (32-36) g/dL RDW Std Deviation (36.4-46.3) fL RDW Coeff of Paul (11.5-14.5) % Plt Count (130-400) K/uL MPV (7.4-10.4) fL Immature Gran % (Auto) % Neut % (Auto) % Lymph % (Auto) % [place] % (Auto) % Eos % (Auto) % Baso % (Auto) % Neut # (Auto) (1.4-6.5) K/uL Lymph # (Auto) (1.2-3.4) K/uL [place] # (Auto) (0.11-0.59) K/uL Eos # (Auto) (0-0.5) K/uL Baso # (Auto) (0-0.2) K/uL Immature Gran # (Auto) (0.00-0.02) K/uL Sodium (136-145) mmol/L Potassium (3.5-5.1) mmol/L Chloride (98-107) mmol/L Carbon Dioxide (21-32) mmol/L Anion Gap (3-11) BUN (6-23) mg/dl Creatinine (0.6-1.2) mg/dl Est Cr Clr Drug Dosing ml/min Est GFR ( Amer) ml/min Est GFR (Non-Af Amer) ml/min BUN/Creatinine Ratio (10-20) Glucose (70-99(Fasting)) mg/dl Calcium (8.5-10.1) mg/dl Total Bilirubin (0.2-1.0) mg/dl AST (13-39) U/L ALT (7-52) U/L Alkaline Phosphatase (34-104) U/L Total Protein (6.0-8.3) gm/dl Albumin (3.4-5.0) gm/dl Globulin (2.5-4.0) gm/dl Albumin/Globulin Ratio (0.9-2) Lipase (11-82) U/L Urine Color Urine Appearance (Clear) Urine pH (4.5-7.5) Ur Specific [place] (1.000-1.030) Urine Protein (Negative) Urine Glucose (UA) (Negative) Urine Ketones (Negative) Urine Blood (Negative) Urine Nitrite (Negative) Urine Bilirubin (Negative) Urine Urobilinogen (Negative) Ur Leukocyte Esterase (Negative) Urine WBC (Auto) (0-5) /hpf Urine RBC (Auto) (0-4) /hpf U Hyaline Cast (Auto) (0-5) /lpf U Epithel Cells (Auto) (0-5) /lpf Urine Bacteria (Auto) (Negative) SARS-CoV-2, RNA, NAAT NEGATIVE (NEGATIVE) Imaging Data Radiologist's Impression: Abdomen/Pelvis CT 11/25/21 14:37 CT abd pelvis IV con only CLINICAL HISTORY: lower abd pain 2 days, hx colon surgery childhood TECHNIQUE: Helical axial images of the abdomen and pelvis were obtained and displayed. Automated dose lowering techniques and/or adjustment according to patient size were utilized for this exam. This exam was performed with intrave nous contrast. COMPARISON: None available at the time of this dictation. FINDINGS: Lower chest: There is a small right pleural effusion with associated atelectasis. Liver: Unremarkable. No focal lesions are seen. Gallbladder and biliary tree: No calcified gallstones. Normal caliber wall. No intra- or extrahepatic biliary ductal dilation. Pancreas: Unremarkable, no focal lesions. Spleen: Unremarkable. Adrenals: Unremarkable. 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 A renal cyst is seen on the left. Bladder: Limited evaluation due to underdistention. Reproductive organs: Unremarkable. Bowel: Multiple dilated loops of small bowel are seen measuring up to 34 mm in diameter. The colon is not decompressed. Lymph nodes Retroperitoneal: Unremarkable. Mesenteric: Unremarkable. Pelvic: Unremarkable. Peritoneum: Mild ascites is noted. Vessels: Unremarkable. Abdominal wall: Unremarkable. Bones: Unremarkable. IMPRESSION: Multiple dilated loops of bowel without transition point or colonic decompression. Findings likely reflect partial small bowel obstruction. ACT 112: Negative or not required by law. Electronically signed by: Josh Pedro M.D. 11/25/2021 4:16 PM MDM Narrative 60-year-old female presents with intermittent lower abdominal pain that began yesterday accompanied by anorexia, evidence of mild dehydration. On exam she is mildly uncomfortable appearing with dry mucous membranes. Her prior abdominal/incisional scar is tender to palpation with no overlying erythema or evidence of superficial infection. Heart rate 100 at triage. Will obtain labs, administer IV fluids, Toradol for pain as patient declined any pain medication at this time. Discussed risk and benefit of advanced imaging as this has been reoccurring, and patient is agreeable with this plan. High suspicion for bowel obstruction given prior surgery and tenderness over the incision site. Also considered abscess in this location, appendicitis, diverticulitis, nephrolithiasis, pyelonephritis, or other acute intra-abdominal pathology. Labs overall reassuring with no white blood cell count. Electrolytes are normal, no REBEL. Ketonuria likely secondary to anorexia over the past 2 days. Hematuria present which should be followed up on an outpatient basis. Pain was well controlled with Toradol and patient did not require any additional pain medication. CT scan demonstrates a partial small bowel obstruction. I discussed the case with general surgery who requested admission under the hospitalist and they will follow, hoping that this self resolves. I spoke with the patient and instructed her on the plan, and she is agreeable to being admitted for evaluation. Impression & Plan Partial small bowel obstruction Discharge Plan Visit Data Chief Complaint: Abdominal Pain Stated Complaint: ABDOMINAL PAIN ED Provider: Alex Sun ED Midlevel Provider: Osmel Salcedo Discharge Problem: Partial small bowel obstruction Patient Disposition: Admitted As Inpatient Forms Stand Alone Forms: [facility] Prescriptions Prescriptions: No Action Premarin 0.625 mg/gram cream 1 applic vaginal WK RF: 0 atenolol 25 mg tablet 25 mg PO DAILY RF: 0 Referrals Referrals: Allan Martin MD [Primary Care Provider] -
[2021-11-25 14:54] LABS: Basophils # (auto) 0.01 K/uL (0-0.2); Basophils % (auto) 0.1 %; Eosinophils # (auto) 0.07 K/uL (0-0.5); Eosinophils % (auto) 0.9 %; Hematocrit (blood only) 48.2 % (37-47); Hemoglobin 16.5 g/dL (12.0-16.0); Immature Granulocytes # (auto) 0.01 K/uL (0.00-0.02); Immature Granulocytes % (auto) 0.1 %; Lymphocytes # (auto) 1.63 K/uL (1.2-3.4); Lymphocytes % (auto) 21.6 %; Mean Corpuscular Hemoglobin 32.2 pg (25-34); Mean Corpuscular Hgb Conc 34.2 g/dL (32-36); Mean Corpuscular Volume 94.1 fL (80-100); Monocytes # (auto) 0.67 K/uL (0.11-0.59); Monocytes % (auto) 8.9 %; Neutrophils # (auto) 5.14 K/uL (1.4-6.5); Neutrophils % (auto) 68.4 %; Platelet Count 249 K/uL (130-400); RDW Coefficient of Variation 12.6 % (11.5-14.5); RDW Standard Deviation 43.2 fL (36.4-46.3); Red Blood Count 5.12 M/uL (4.2-5.4); White Blood Count 7.53 K/uL (4.8-10.8)
[2021-11-25 14:58] LABS: Appearance Urine Clear (Clear); Bacteria Urine Automated Negative (Negative); Bilirubin Urine Negative (Negative); Blood Urine 3+ (Negative); Color Urine Dark Yellow; Epithelial Cell Urine Auto >30 /lpf (0-5); Glucose Urine UA Negative (Negative); Ketones Urine 2+ (Negative); Leukocyte Esterase Urine Negative (Negative); Nitrite Urine Negative (Negative); Protein Urine Trace (Negative); Specific Gravity Urine 1.027 (1.000-1.030); Urobilinogen Urine Negative (Negative); pH Urine 5.5 (4.5-7.5)
[2021-11-25 15:17] LABS: Albumin Globulin Ratio 1.6 (0.9-2); Albumin Level 4.5 gm/dl (3.4-5.0); BUN Creatinine Ratio 18.8 (10-20); Bilirubin,Total 1.1 mg/dl (0.2-1.0); Calcium 9.7 mg/dl (8.5-10.1); Creatinine Clr Calc Pharmacy 70.9 ml/min; Est GFR (African American) 93.5 ml/min; Est GFR (Non-African American) 80.7 ml/min; Globulin 2.9 gm/dl (2.5-4.0); Potassium 4.2 mmol/L (3.5-5.1); Total Protein 7.4 gm/dl (6.0-8.3)
[2021-11-25] MEDS ORDERED: OPTIRAY 320 100ml IV ONE (16:05)
--- NOTE | 2021-11-25 16:18 | CT Scan Report ---
CT abd pelvis IV con only CLINICAL HISTORY: lower abd pain 2 days, hx colon surgery childhood TECHNIQUE: Helical axial images of the abdomen and pelvis were obtained and displayed. Automated dose lowering techniques and/or adjustment according to patient size were utilized for this exam. This e xam was performed with intravenous contrast. COMPARISON: None available at the time of this dictation. FINDINGS: Lower chest: There is a small right pleural effusion with associated atelectasis. Liver: Unremarkable. No focal lesions are seen. Gallbladder and biliary tree: No calcified gallstones. Normal caliber wall. No intra- or extrahepatic biliary ductal dilation. Pancreas: Unremarkable, no focal lesions. Spleen: Unremarkable. Adrenals: Unremarkable. 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 A renal cyst is seen on the le ft. Bladder: Limited evaluation due to underdistention. Reproductive organs: Unremarkable. Bowel: Multiple dilated loops of small bowel are seen measuring up to 34 mm in diameter. The colon is not decompressed. Lymph nodes Retroperitoneal: Unremarkable. Mesenteric: Unremarkable. Pelvic: Unremarkable. Peritoneum: Mild ascites is noted. Vessels: Unremarkable. Abdominal wall: Unremarkable. Bones: Unremarkable. IMPRESSION: Multiple dilated loops of bowel without transition point or colonic decompression. Findings likely re flect partial small bowel obstruction. ACT 112: Negative or not required by law. Electronically signed by: Josh Pedro M.D. 11/25/2021 4:16 PM
[2021-11-25] MEDS ORDERED: SODIUM CHLORIDE 0.9% 500 ML IV ONE (16:22)
--- NOTE | 2021-11-25 17:07 | Surgery Consultation ---
Date of Consultation November 25, 2021 Assessment & Plan (1) Partial small bowel obstruction: This is a 60y F with a PMH of congenital malrotation requiring surgical intervention at 3months old who presents to the [facility] ED on 11/25/21 with complaints of abdominal pain and nausea starting yesterday afternoon. A CT a/p performed revealed multiple dilated loops of bowel without transition point or colonic decompression. Findings likely reflect partial small bowel obstruction. Apparently she has had similar episodes to this in the past, but that have usually self resolved and the pain is less severe. She did have a BM this AM. On exam lower abdomen is softly distended with some generalized discomfort to palpation around her umbilicus and lower belly. She has a R para midline scar from previous surgery. At this time patient is feeling mildly better. Okay to hold off on NGT for now as patient without vomiting and some noted improvement in symptoms. Will need to re-evaluate need for NGT should she develop worsening belly pain/distention and n/v. Recommend NPO with IVF hydration. Can obtain KUB tomorrow. No plans for surgical intervention at this time. Hopefully this episode will self resolve as prior ones had. We will follow closely. Appreciate hospitalist assistance with managing patient. Supervising Physician Co-Signing Physician Notes I personally saw and evaluated the patient with Maribell Thayer PA-C and agree with the assessment and plan. 60-year-old female with partial small bowel obstruction CT images and results personally viewed by me We will treat her nonoperatively at this point with n.p.o. 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 Patient reports her abdominal discomfort began around 1pm after eating lunch yesterday. The abdominal pain waxes and wanes and she compared it to labor pains. She rates the pain an 8/10 in severity at its worst. She has had episodes of discomfort like this in the past, but nothing that was this severe or long lasting. Usually these episodes self resolve for her over the course of hours, but this has been persisting now since yesterday. She has been unable to sleep, get comfortable, or feel okay enough to eat/drink. She presented to the ER today for evaluation. A CT a/p was obtained that revealed multiple dilated loops of bowel without transition point or colonic decompression. Findings likely reflect partial small bowel obstruction. Patient denies f/c, CP/SOB, or change in bowel habits. Last BM was today and she is fairly regular. Allergies Allergy/AdvReac Type Severity Reaction Status Date / Time No Known Allergies Allergy Verified 11/25/21 14:59 Home Medications Medication Instructions Recorded Confirmed Type conjugated estrogens 0.625 mg/gram 1 applic VAGINAL WK 06/15/20 11/25/21 History vaginal cream (Premarin) atenolol 25 mg tablet 25 mg PO DAILY 11/25/21 11/25/21 History Patient History Medical History History of PSVT (paroxysmal supraventricular tachycardia) Surgical History Congenital malrotation of intestine Delivery by section History of appendectomy Family History Mother Atrial fibrillation Social History Smoking Status: Never smoker Hx Alcohol Use: No Hx Substance Use: No Preferred Language: Mongolian Communication Ability: Effective Head Of Ict Required: No Beliefs That Will Affect Care: None Current Living Situation: Spouse Feels Safe at Home: Yes Assistive Devices: None Review of Systems Constitutional: no fever and no chills Respiratory: no dyspnea Cardiovascular: no chest pain Gastrointestinal: + abdominal pain, + bloating and + nausea; no vomiting and no change in bowel habits Physical Exam Physical Exam: awake/alert, NAD Respiratory: normal respiratory effort Gastrointestinal (Abdomen): Inspection/Auscultation: + abdomen distended (mild) and + abdominal surgical scar (R para mid line abdominal scar from prior sx) Percussion/Palpation: + abdomen tender (some ttp evie-umbilically ) and abdomen soft Results & Data ([facility]) Vital Signs (Past 12 Hours) Vital Signs Temp Pulse Pulse Resp BP BP Pulse Ox 11/25/21 16:00 67 20 125/73 99 11/25/21 14:06 36.3 C L 100 H 16 118/[address] abd pelvis IV con only CLINICAL HISTORY: lower abd pain 2 days, hx colon surgery childhood TECHNIQUE: Helical axial images of the abdomen and pelvis were obtained and displayed. Automated dose lowering techniques and/or adjustment according to patient size were utilized for this exam. This exam was performed with intravenous contrast. COMPARISON: None available at the time of this dictation. FINDINGS: Lower chest: There is a small right pleural effusion with associated atelectasis. Liver: Unremarkable. No focal lesions are seen. Gallbladder and biliary tree: No calcified gallstones. Normal caliber wall. No intra- or extrahepatic biliary ductal dilation. Pancreas: Unremarkable, no focal lesions. Spleen: Unremarkable. Adrenals: Unremarkable. 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 A renal cyst is seen on the left. Bladder: Limited evaluation due to underdistention. Reproductive organs: Unremarkable. Bowel: Multiple dilated loops of small bowel are seen measuring up to 34 mm in diameter. The colon is not decompressed. Lymph nodes Retroperitoneal: Unremarkable. Mesenteric: Unremarkable. Pelvic: Unremarkable. Peritoneum: Mild ascites is noted. Vessels: Unremarkable. Abdominal wall: Unremarkable. Bones: Unremarkable. IMPRESSION: Multiple dilated loops of bowel without transition point or colonic decompression. Findings likely reflect partial small bowel obstruction. ACT 112: Negative or not required by law. Electronically signed by: Josh Pedro M.D. 11/25/2021 4:16 PM Dictated:11/25/21 1610 PG Care Time/CCT Total # of Minutes Spent Total Time Spent with Patient: Total time spent is greater than 50% in coordination of care (as documented) at patient's floor/unit and/or counseling patient: Coding Level of Care Code 62276 Inpt Consult Level 3 Diagnoses Partial small bowel obstruction K56.600
--- NOTE | 2021-11-25 17:34 | History & Physical Report ---
Date of Service November 25, 2021 Assessment & Plan (1) Partial small bowel obstruction: Plan: Admit to [facility] Patient presenting from home with reports of generalized abdominal pain and nausea. In the ED, CT ABD/pelvis showing partial small bowel obstruction Patient reports a remote history of a small bowel obstruction that was treated conservatively. Also has history of prior abdominal surgeries including repair of transposition of colon as a child. Conservative management for now with n.p.o., IVF, as needed antiemetics and pain medication. 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 Patient reports her symptoms came on suddenly yesterday around 1 PM. Reports persistent abdominal pain and nausea since that time. No vomiting. Describes the pain as generalized. Reports normal bowel movement this morning. No bright red bleeding per rectum or dark tarry stools. Patient reports a history of a small bowel obstruction about 15 years ago that was treated conservatively. Patient denies any other recent illnesses, fevers, chills. No chest pain, shortness of breath, palpitations. Denies lightheadedness, dizziness, diaphoresis, syncopal events. No urinary symptoms. In the ED, CT ABD/pelvis is showing partial small bowel obstruction. Patient is hemodynamically stable, labs are unremarkable. Patient received IV ketorolac, IV Zofran, IVF. Allergies Allergy/AdvReac Type Severity Reaction Status Date / Time No Known Allergies Allergy Verified 11/25/21 14:59 Home Medications Medication Instructions Recorded Confirmed Type conjugated estrogens 0.625 mg/gram 1 applic VAGINAL WK 06/15/20 11/25/21 History vaginal cream (Premarin) atenolol 25 mg tablet 25 mg PO DAILY 11/25/21 11/25/21 History Past Med/Surg History Medical History History of PSVT (paroxysmal supraventricular tachycardia) Surgical History Congenital malrotation of intestine Delivery by section History of appendectomy Family History Mother Atrial fibrillation Social History Smoking Status: Never smoker Hx Alcohol Use: Yes Alcohol type: wine Alcohol Intake Frequency: 2-3 x/Week Hx Substance Use: No Preferred Language: Mongolian Communication Ability: Effective Corporate Compliance Director Required: No Beliefs That Will Affect Care: None Current Living Situation: Spouse Feels Safe at Home: Yes Assistive Devices: None Review of Systems Review of Systems: ROS per HPI, all other systems reviewed and negative Physical Exam Constitutional: WD/WN, vitals as above Eyes: PERRL, conjunctivae normal, anicteric sclerae ENMT: external ear and nose normal, oropharynx normal Respiratory: normal respiratory effort, lungs clear to auscultation Cardiovascular: Rate/Rhythm: regular rate and regular rhythm Vessels: normal peripheral pulses Extremities: no edema Gastrointestinal (Abdomen): Inspection/Auscultation: + abdomen distended and normal bowel sounds Percussion/Palpation: + abdomen tender (Generalized) and abdomen soft; no hepatosplenomegaly Musculoskeletal: no cyanosis or clubbing, extremities motor strength 5/5 Skin: no rashes, warm and dry Neurologic: PERRL, EOMI, accommodation nl, no face palsy, no dysarthria Psychiatric: A+Ox3, euthymic affect Results & Data Results & Data ([facility]) Vital Signs (Past 12 Hours) Vital Signs Temp Pulse Pulse Resp BP BP Pulse Ox 11/25/21 16:00 67 20 125/73 99 11/25/21 14:06 36.3 C L 100 H 16 118/77 100 Laboratory Results Short CBC 11/25/21 Range/Units 14:43 WBC 7.53 (4.8-10.8) K/uL Hgb 16.5 H (12.0-16.0) g/dL Hct 48.2 H (37-47) % Plt Count 249 (130-400) K/uL BMP 11/25/21 14:43 Sodium 136 Potassium 4.2 Chloride 102 Carbon Dioxide 25 BUN 15 Creatinine 0.80 Glucose 101 H Calcium 9.7 Liver Function 11/25/21 Range/Units 14:43 Total Bilirubin 1.1 H (0.2-1.0) mg/dl AST 19 (13-39) U/L ALT 18 (7-52) U/L Alkaline Phosphatase 59 (34-104) U/L Albumin 4.5 (3.4-5.0) gm/dl Urine 11/25/21 Range/Units 14:43 Urine Color Dark Yellow Urine Appearance Clear (Clear) Urine pH 5.5 (4.5-7.5) Ur Specific [place] 1.027 (1.000-1.030) Urine Protein Trace H (Negative) Urine Glucose (UA) Negative (Negative) Diagnostic Findings Abdomen/Pelvis CT 11/25/21 14:37 CT abd pelvis IV con only CLINICAL HISTORY: lower abd pain 2 days, hx colon surgery childhood TECHNIQUE: Helical axial images of the abdomen and pelvis were obtained and displayed. Automated dose lowering techniques and/or adjustment according to patient size were utilized for this exam. This exam was performed with intravenous contrast. COMPARISON: None available at the time of this dictation. FINDINGS: Lower chest: There is a small right pleural effusion with associated atelectasis. Liver: Unremarkable. No focal lesions are seen. Gallbladder and biliary tree: No calcified gallstones. Normal caliber wall. No intra- or extrahepatic biliary ductal dilation. Pancreas: Unremarkable, no focal lesions. Spleen: Unremarkable. Adrenals: Unremarkable. 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 A renal cyst is seen on the left. Bladder: Limited evaluation due to underdistention. Reproductive organs: Unremarkable. Bowel: Multiple dilated loops of small bowel are seen measuring up to 34 mm in diameter. The colon is not decompressed. Lymph nodes Retroperitoneal: Unremarkable. Mesenteric: Unremarkable. Pelvic: Unremarkable. Peritoneum: Mild ascites is noted. Vessels: Unremarkable. Abdominal wall: Unremarkable. Bones: Unremarkable. IMPRESSION: Multiple dilated loops of bowel without transition point or colonic decompression. Findings likely reflect partial small bowel obstruction. ACT 112: Negative or not required by law. Electronically signed by: Josh Pedro M.D. 11/25/2021 4:16 PM Code Status & VTE Plan VTE Prophylaxis Plan VTE Prophylaxis will be ordered: Yes Supervising Physician Co-Signing Physician Notes Attending addendum: The patient was seen and examined in emergency room She has been complaining of abdominal pain with nausea since yesterday morning. She has not been eating since then and has had a bowel movement this morning Condition did not improve without any significant distention of the abdomen that she came to the emergency room for further evaluation On examination Lying in bed comfortably Hemodynamically stable Chest-clear to auscultate bilaterally Heart-S1, S2 regular and no murmur Abdomen-minimally distended, bullock of prior surgery. Mildly tender and bowel sounds sluggish Extremitiesnegative for any edema CNSalert, awake and oriented x3 Her admission labs, EKG and imaging studies reviewed CT of the abdomen and pelvis did show partial small bowel obstruction likely secondary to adhesions History of surgery for intestinal malrotation as a child History of PSVT-stable right now Surgery has been consulted Agree with assessment and plan as outlined above by Veronica Campo
[2021-11-25] MEDS: MoRPHine SULFATE 4 MG/ML 1 ML CARP\\VIAL IV PRN (21:10)
[2021-11-25] MEDS: D5W AND NSS 1,000 ML IV SCH (21:10)
[2021-11-25] MEDS: ONDANSETRON INJ 2 MG/ML 2 ML VIAL IV PRN (21:20)
[2021-11-26] MEDS: MoRPHine SULFATE 4 MG/ML 1 ML CARP\\VIAL IV PRN ×4 (03:38→23:01)
[2021-11-26] MEDS: ONDANSETRON INJ 2 MG/ML 2 ML VIAL IV PRN ×4 (03:38→23:02)
[2021-11-26] MEDS: D5W AND NSS 1,000 ML IV SCH ×3 (03:42→17:59)
--- NOTE | 2021-11-26 06:03 | Surgery Progress Note ---
Date of Service November 26, 2021 Assessment & Plan (1) Partial small bowel obstruction: Plan: Patient has been admitted on the hospitalist service. We recommend proceeding as follows: Continue analgesics Continue antiemetics Continue IV fluid for hydration until diet can be advanced Maintain n.p.o. status (patient may have occasional ice chips) with plans to advance patient's diet beginning with clear liquids once she passes flatus or has bowel movement Admission and Anticipated Discharge Date Admission Date: November 25, 2021 Supervising Physician Co-Signing Physician Notes I personally saw and evaluated the patient with Angel Rondon PA-C and agree with the assessment and plan. 60-year-old female with partial small bowel obstruction She still has some pain but no concerning findings on physical exam Continue n.p.o. and IV fluids Serial abdominal exams If she has not made significant progress over the next 24 to 48 hours, would proceed with small bowel follow-through which could be diagnostic and therapeutic We will follow Subjective Patient is resting comfortably in bed. Since admission she denies any nausea vomiting. Since admission she has not had any bowel movement or passed any flatus. She notes that her abdominal pain that prompted her visit to the hospital comes and goes and has not gotten any worse. She denies any worsening abdominal distention. Physical Exam Gastrointestinal (Abdomen): Abdomen is soft with minimal distention. Bowel sounds are present. There is some pain with palpation in the midline. There is no rebound tenderness or guarding. Results & Data ([facility]) Vital Signs (Past 12 Hours) Vital Signs Temp Pulse Resp BP Pulse Ox 11/25/21 22:07 36.8 C 67 17 112/71 96 11/25/21 20:40 37 C 63 14 130/78 98 11/25/21 19:30 69 18 120/72 99 11/25/21 18:30 61 20 115/72 100 PG Care Time/CCT Total # of Minutes Spent Total Time Spent with Patient: Total time spent is greater than 50% in coordination of care (as documented) at patient's floor/unit and/or counseling patient: Coding Level of Care Code 21188 Subseq Hosp Care Lvl 1 Diagnoses Partial small bowel obstruction K56.600
[2021-11-26 07:21] LABS: Hematocrit (blood only) 41.9 % (37-47); Hemoglobin 14.6 g/dL (12.0-16.0); Mean Corpuscular Hemoglobin 33.3 pg (25-34); Mean Corpuscular Hgb Conc 34.8 g/dL (32-36); Mean Corpuscular Volume 95.4 fL (80-100); Mean Platelet Volume 9.4 fL (7.4-10.4); Platelet Count 223 K/uL (130-400); RDW Coefficient of Variation 12.7 % (11.5-14.5); RDW Standard Deviation 44.2 fL (36.4-46.3); Red Blood Count 4.39 M/uL (4.2-5.4); White Blood Count 4.98 K/uL (4.8-10.8)
[2021-11-26 07:43] LABS: BUN Creatinine Ratio 21.2 (10-20); Creatinine Clr Calc Pharmacy 85.9 ml/min; Est GFR (African American) 112.1 ml/min; Est GFR (Non-African American) 96.7 ml/min; Potassium 3.9 mmol/L (3.5-5.1)
[2021-11-26] MEDS: ATENOLOL 25 MG TABLET PO SCH (08:11)
--- NOTE | 2021-11-26 12:14 | Electrocardiogram Report ---
Test Reason : Blood Pressure : / mmHG Vent. Rate : 065 BPM Atrial Rate : 065 BPM P-R Int : 164 ms QRS Dur : 086 ms QT Int : 422 ms P-R-T Axes : 071 086 076 degrees QTc Int : 438 ms Normal sinus rhythm Possible Left atrial enlargement Cannot rule out Anterior infarct , age undetermined Abnormal ECG When compared with ECG of 16-JUN-2020 06:47, Vent. rate has increased BY 22 BPM Confirmed by Edwar Rodriguez ([id number]) on 11/26/2021 12:13:58 PM Referred By: REFERRED SELF Confirmed By:Edwar Rodriguez
--- NOTE | 2021-11-26 13:41 | Hospitalist Progress Note ---
Date of Service November 26, 2021 Assessment & Plan (1) Partial small bowel obstruction: Plan: Patient presenting from home with reports of generalized abdominal pain and nausea. CT ABD/pelvis on admission showing partial small bowel obstruction Surgery on board and recommended conservative management Continue IVF and pain management Continue to keep NPO for now ( OK with ice chips as per surgery) If no improvement in the next 24 to 48 hours, would proceed with small bowel follow-through which could be diagnostic and therapeutic Continue monitor closely (2) History of PSVT (paroxysmal supraventricular tachycardia): Plan: Continue atenolol (3) DVT prophylaxis: Plan: SCDs, ambulate Admission and Anticipated Discharge Date Admission Date: November 25, 2021 Subjective Pt was seen and examined for follow up of abdominal pain Lying in bed with no acute distress She said that her abdominal pain and nausea improved Denies any chest pain, palpitation, dizziness and SOB Review of Systems Review of Systems: All systems reviewed & are unremarkable except as noted in Subjective Physical Exam Physical Exam: General- No acute distress Head- atraumatic Eyes- PERRL, EOMI, ENT- oropharynx clear Neck- supple, no JVD Lungs- clear to auscultation Heart- regular rhythm; no murmur Abdomen- Hypoactive bowel sound, Tenderness with deep palpation Extremities- no calf tenderness Neuro- alert, oriented x 3; PERRL, EOMI; no facial palsy; no dysarthria Skin- warm & dry Results & Data Results & Data ([facility]) Vital Signs (Past 12 Hours) Vital Signs Temp Pulse Resp BP Pulse Ox 11/26/21 07:42 37.0 C 68 18 108/70 92
[2021-11-27] MEDS: D5W AND NSS 1,000 ML IV SCH ×3 (03:03→19:23)
[2021-11-27] MEDS: ONDANSETRON INJ 2 MG/ML 2 ML VIAL IV PRN (05:04)
[2021-11-27] MEDS: MoRPHine SULFATE 4 MG/ML 1 ML CARP\\VIAL IV PRN (05:04)
--- NOTE | 2021-11-27 06:16 | Surgery Progress Note ---
Date of Service November 27, 2021 Assessment & Plan (1) Partial small bowel obstruction: Plan: Patient has been admitted on the hospitalist service. We recommend proceeding as follows: Continue analgesics Continue antiemetics Continue IV fluid for hydration until diet can be advanced Continue n.p.o. status other than occasional ice chips Consideration will be given to performing a contrast study such as a small bowel follow-through tomorrow if further clinical improvement is not noted Admission and Anticipated Discharge Date Admission Date: November 25, 2021 Supervising Physician Co-Signing Physician Notes I personally saw and evaluated the patient with Angel Rondon PA-C and agree with the assessment and plan. 60-year-old female with partial small bowel obstruction She has passed a little bit of flatus and has less abdominal pain than yesterday Continue n.p.o. and IV fluids Serial abdominal exams We will plan on small bowel follow-through tomorrow if she has not made any significant progress today We will follow Subjective Patient is resting comfortably in bed. She notes she has intermittent nausea without any emesis. She notes that she has abdominal pain similar to what was noted time of admission but notes it is not any worse. She has passed some flatus over the past 12 hours but has not a bowel movement since admission. Physical Exam Gastrointestinal (Abdomen): Abdomen is minimally distended. There is no rebound tenderness or guarding. Patient did have pain with palpation in the midline just superior to the umbilicus. Results & Data ([facility]) Vital Signs (Past 12 Hours) Vital Signs Temp Pulse Resp BP Pulse Ox 11/26/21 22:52 36.8 C 78 17 103/66 93 PG Care Time/CCT Total # of Minutes Spent Total Time Spent with Patient: Total time spent is greater than 50% in coordination of care (as documented) at patient's floor/unit and/or counseling patient: Coding Level of Care Code 42302 Subseq Hosp Care Lvl 1 Diagnoses Partial small bowel obstruction K56.600
[2021-11-27 06:33] LABS: BUN Creatinine Ratio 16.1 (10-20); Creatinine Clr Calc Pharmacy 91.5 ml/min; Est GFR (African American) 114.4 ml/min; Est GFR (Non-African American) 98.7 ml/min; Magnesium 1.7 mg/dl (1.7-2.4); Potassium 3.7 mmol/L (3.5-5.1)
[2021-11-27] MEDS: ATENOLOL 25 MG TABLET PO SCH (07:46)
--- NOTE | 2021-11-27 10:27 | XRay Report ---
XR KUB/Abdomen 1 view CLINICAL HISTORY: Follow SBO TECHNIQUE: 1 view of the abdomen was obtained. Comparison: Comparison is made to CT abdomen pelvis 11/25/2021 FINDINGS: Lung bases are unremarkable. The osseous structures are grossly unremarkable. Multiple dilated loops of bowel are seen measuring up to 36 mm. A small amount of gas remains in the colon. A moderate amoun t of stool is noted within the large bowel. IMPRESSION: Multiple dilated loops of bowel compatible with continued partial small bowel obstruction. ACT 112: Negative or not required by law. Electronically signed by: Josh Pedro M.D. 11/27/2021 10:26 AM
--- NOTE | 2021-11-27 16:36 | Hospitalist Progress Note ---
Date of Service November 27, 2021 Assessment & Plan (1) Partial small bowel obstruction: Plan: Patient presenting from home with reports of generalized abdominal pain and nausea. CT ABD/pelvis on admission showing partial small bowel obstruction KUB showed Multiple dilated loops of bowel compatible with continued partial small bowel obstruction. Surgery on board and recommended conservative management Clinically improves since pt had 4 BM today Continue IVF and pain management Surgery agreed to start on clear liquid diet Continue monitor closely (2) History of PSVT (paroxysmal supraventricular tachycardia): Plan: Continue atenolol (3) DVT prophylaxis: Plan: SCDs/ ambulate ( in case pt wants for surgery) Admission and Anticipated Discharge Date Admission Date: November 25, 2021 Subjective Pt was seen and examined for follow up of abdominal pain/ partial SBO Lying in bed with no acute distress She said that she feels much better today She said that she had 4 BM today She said that she feels thirsty Denies any chest pain, palpitation, nausea/vomiting, dizziness and SOB Review of Systems Review of Systems: All systems reviewed & are unremarkable except as noted in Subjective Physical Exam Physical Exam: General- No acute distress Head- atraumatic Eyes- PERRL, EOMI, ENT- oropharynx clear Neck- supple, no JVD Lungs- clear to auscultation Heart- regular rhythm; no murmur Abdomen- Hypoactive bowel sound, non Tenderness Extremities- no calf tenderness Neuro- alert, oriented x 3; PERRL, EOMI; no facial palsy; no dysarthria Skin- warm & dry Results & Data Results & Data ([facility]) Vital Signs (Past 12 Hours) Vital Signs Temp Pulse Resp BP Pulse Ox 11/27/21 16:13 36.7 C 64 16 107/67 95 11/27/21 07:40 37.1 C 62 16 99/64 L 91
[2021-11-28] MEDS: D5W AND NSS 1,000 ML IV SCH ×3 (03:07→18:34)
[2021-11-28 06:16] LABS: BUN Creatinine Ratio 8.9 (10-20); Calcium 7.7 mg/dl (8.5-10.1); Creatinine Clr Calc Pharmacy 101.3 ml/min; Est GFR (African American) 118.3 ml/min; Est GFR (Non-African American) 102.1 ml/min; Magnesium 1.6 mg/dl (1.7-2.4); Phosphorus 2.3 mg/dl (2.5-4.9); Potassium 3.5 mmol/L (3.5-5.1)
[2021-11-28] MEDS: ATENOLOL 25 MG TABLET PO SCH (07:36)
[2021-11-28] MEDS ORDERED: POTASSIUM PHOS 3 MMOL/1 ML INFUSION IV STA (08:35)
[2021-11-28] MEDS ORDERED: MAGNESIUM SULFATE / D5W 1 GM/100 ML BAG IV ONE (08:35)
[2021-11-28] MEDS ORDERED: POTASSIUM PHOSPHATE 15 MMOL in DEXTROSE 5% 250 ML IV STA (08:54)
--- NOTE | 2021-11-28 09:30 | Surgery Progress Note ---
Date of Service November 28, 2021 Assessment & Plan (1) Partial small bowel obstruction: Plan: improving will check KUB can begin advancing diet seen with Dr. Singh Admission and Anticipated Discharge Date Admission Date: November 25, 2021 Supervising Physician Co-Signing Physician Notes I personally saw and evaluated the patient with Ricky Brody PA-C and agree with the assessment and plan. 60-year-old female with partial small bowel obstruction, resolving Her pain is improved and she has been passing flatus and having bowel movements She still seems a bit distended but is tolerating clear liquids We we will get a KUB and advance her diet If she tolerates a diet and continues to have bowel function she may be able to be discharged later today versus tomorrow We will follow Subjective multiple loose BMs + flatus, tolerating clears Physical Exam Constitutional: WD/WN, vitals as above Gastrointestinal (Abdomen): Inspection/Auscultation: + abdomen distended Percussion/Palpation: abdomen soft; abdomen nontender Results & Data ([facility]) Vital Signs (Past 12 Hours) Vital Signs Temp Pulse Resp BP Pulse Ox 11/28/21 07:18 36.8 C 62 17 115/72 93 11/27/21 22:51 37.1 C 68 17 110/69 92 PG Care Time/CCT Total # of Minutes Spent Total Time Spent with Patient: Total time spent is greater than 50% in coordination of care (as documented) at patient's floor/unit and/or counseling patient: Coding Level of Care Code 11921 Subseq Hosp Care Lvl 1 Diagnoses Partial small bowel obstruction K56.600
--- NOTE | 2021-11-28 10:19 | XRay Report ---
XR KUB/Abdomen 1 view CLINICAL HISTORY: SBO TECHNIQUE: 1 view of the abdomen was obtained. Comparison: Comparison is made to abdomen radiograph 11/27/2021 FINDINGS: Lung bases are unremarkable. The osseous structures are grossly unremarkable. Gas distended loops of small bowel are again seen measuring up to 44 mm. Gas remains in the colon. A small amount of stool i s seen. IMPRESSION: Redemonstration of partial small bowel obstruction. ACT 112: Negative or not required by law. Electronically signed by: Josh Pedro M.D. 11/28/2021 10:18 AM
[2021-11-28] MEDS: ACETAMINOPHEN 325 MG TAB PO PRN (20:25)
--- NOTE | 2021-11-28 22:10 | Hospitalist Progress Note ---
Date of Service November 28, 2021 Assessment & Plan (1) Partial small bowel obstruction: Plan: Patient presenting from home with reports of generalized abdominal pain and nausea. CT ABD/pelvis on admission showing partial small bowel obstruction KUB showed Multiple dilated loops of bowel compatible with continued partial small bowel obstruction. Surgery on board and recommended conservative management Continue IVF and pain management Diet advanced as tolerated Continue monitor closely (2) History of PSVT (paroxysmal supraventricular tachycardia): Plan: Continue atenolol (3) DVT prophylaxis: Plan: SCDs/ ambulate ( in case pt wants for surgery) Admission and Anticipated Discharge Date Admission Date: November 25, 2021 Subjective Pt was seen and examined for follow up of abdominal pain/ partial SBO Lying in bed with no acute distress She said that she feels much better today Full liquid diet and advanced as tolerated Denies any chest pain, palpitation, nausea/vomiting, dizziness and SOB Review of Systems Review of Systems: All systems reviewed & are unremarkable except as noted in Subjective Physical Exam Physical Exam: General- No acute distress Head- atraumatic Eyes- PERRL, EOMI, ENT- oropharynx clear Neck- supple, no JVD Lungs- clear to auscultation Heart- regular rhythm; no murmur Abdomen- + bowel sound, +mild distended, non Tenderness Extremities- no calf tenderness Neuro- alert, oriented x 3; PERRL, EOMI; no facial palsy; no dysarthria Skin- warm & dry Results & Data Results & Data ([facility]) Vital Signs (Past 12 Hours) Vital Signs Temp Pulse Resp BP Pulse Ox 11/28/21 14:11 36.6 C 54 L 17 121/73 97
[2021-11-29] MEDS: D5W AND NSS 1,000 ML IV SCH ×2 (01:30→09:53)
--- NOTE | 2021-11-29 07:52 | Surgery Progress Note ---
Date of Service November 29, 2021 Assessment & Plan (1) Partial small bowel obstruction: Plan: KUB yesterday with similar SB distention exam unchanged today will check SBFT today Admission and Anticipated Discharge Date Admission Date: November 25, 2021 Supervising Physician Co-Signing Physician Notes I personally saw and evaluated the patient with Ricky Brody PA-C and agree with the assessment and plan. 60-year-old female with partial small bowel obstruction, resolving We did order a small bowel follow-through today and contrast reached the colon in 20 minutes without any signs of obstruction We will order an advancing diet and see how she tolerates it No plans for any surgery She may be intermittently having a partial small bowel obstruction due to adhesions but again no plans for surgery If she tolerates the diet she can be discharged home Subjective no nausea, some flatus, no further BMs, remains bloated Physical Exam Gastrointestinal (Abdomen): Inspection/Auscultation: + abdomen distended Percussion/Palpation: + abdomen tender (minimal) and abdomen soft Results & Data ([facility]) Vital Signs (Past 12 Hours) Vital Signs Temp Pulse Resp BP Pulse Ox 11/29/21 07:26 36.6 C 54 L 16 106/67 95 11/28/21 22:12 37 C 55 L 18 121/78 95 PG Care Time/CCT Total # of Minutes Spent Total Time Spent with Patient: Total time spent is greater than 50% in coordination of care (as documented) at patient's floor/unit and/or counseling patient: Coding Level of Care Code 00104 Subseq Hosp Care Lvl 1 Diagnoses Partial small bowel obstruction K56.600
[2021-11-29 08:14] LABS: BUN Creatinine Ratio 3.3 (10-20); Est GFR (Non-African American) 99.2 ml/min; Magnesium 1.8 mg/dl (1.7-2.4); Potassium 3.1 mmol/L (3.5-5.1)
[2021-11-29] MEDS ORDERED: POTASSIUM CHLORIDE CRTAB 20 MEQ TABCR PO STA (09:23)
--- NOTE | 2021-11-29 09:27 | Fluoroscopy Report ---
FLUOROSCOPIC SMALL BOWEL FOLLOW-THROUGH CLINICAL HISTORY: Small bowel obstruction. COMPARISON STUDY: Abdominal CT dated 11/25/2021. TECHNIQUE: An abdominal inspector canned food reconditioning radiograph was performed. The patient consumed approximately 600 cc of a mixture of Optiray 300 and water and a small follow-through was performed. Overhead radiographs and spot compression images were obtained. FINDINGS: The abdominal inspector canned food reconditioning radiograph shows no radiographic evidence of bowel obstruction. No evidence of in traperitoneal free air is identified. There are no abnormal abdominal calcifications. Phleboliths are seen in the pelvis. The skeletal structures are osteopenic and appear intact. On the small bowel follow-through, there is normal transit time with contrast identified in the colon at 20 minutes. There are mildly distended small bowel loops with no evidence of obstruction. Fold th ickening is noted in the distal small bowel. There is no evidence of stricture or mass. The distal/te rminal ileum are not well visualized on the spot compression views. Fluoroscopy time: 1.2 minutes Fluoroscopic images: 3 overhead radiographs and 9 spot compression views. IMPRESSION: 1. There is no evidence of a small bowel obstruction. 2. Fold thickening is noted in the distal small bowel. ACT 112: Negative or not required by law. Electronically signed by: Willie Sinha M.D. 11/29/2021 9:26 AM
[2021-11-29] MEDS: ATENOLOL 25 MG TABLET PO SCH (09:59)
--- NOTE | 2021-11-29 10:59 | Hospitalist Progress Note ---
Date of Service November 29, 2021 Assessment & Plan (1) Partial small bowel obstruction: Plan: Patient presenting from home with reports of generalized abdominal pain and nausea. SBO possible related to peritoneal adhesions from colon surgery as a child CT ABD/pelvis on admission showing partial small bowel obstruction KUB showed Multiple dilated loops of bowel compatible with continued partial small bowel obstruction. Surgery on board and recommended conservative management Small bowel through xray showed no evidence of a small bowel obstruction. Continue IVF and pain management prn Diet advanced as tolerated Will encourage patient to ambulate around Will discharge home once stable from surgery standpoint (2) History of PSVT (paroxysmal supraventricular tachycardia): Plan: On atenolol Bradycardia Possible related to Atenolol she takes for PSVT Asymptomatic Will encourage pt to walk around that might help with the HR If becomes symptomatic or HR drops further, will consider to decrease or hold Atenol Disposition Possible discharge home today (3) DVT prophylaxis: Plan: SCDs/ ambulate ( in case pt wants for surgery) Admission and Anticipated Discharge Date Admission Date: November 25, 2021 Subjective Pt was seen and examined for follow up of abdominal pain/ partial SBO Lying in bed with no acute distress watching TV She said that she is not having any abdominal discomfort She said that she had a BM today that started to get formed Denies any chest pain, palpitation, nausea/vomiting, dizziness and SOB Review of Systems Review of Systems: All systems reviewed & are unremarkable except as noted in Subjective Physical Exam Physical Exam: General- No acute distress Head- atraumatic Eyes- PERRL, EOMI, ENT- oropharynx clear Neck- supple, no JVD Lungs- clear to auscultation Heart- regular rhythm; no murmur Abdomen- + bowel sound, +mild distended, non Tenderness Extremities- no calf tenderness Neuro- alert, oriented x 3; PERRL, EOMI; no facial palsy; no dysarthria Skin- warm & dry Results & Data Results & Data ([facility]) Vital Signs (Past 12 Hours) Vital Signs Temp Pulse Resp BP Pulse Ox 11/29/21 09:57 46 L 122/80 11/29/21 07:26 36.6 C 54 L 16 106/67 95
[2021-11-29] MEDS: ACETAMINOPHEN 325 MG TAB PO PRN (12:00)
--- NOTE | 2021-12-04 23:08 | Discharge Summary ---
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 Patient reports her symptoms came on suddenly yesterday around 1 PM. Reports persistent abdominal pain and nausea since that time. No vomiting. Describes the pain as generalized. Reports normal bowel movement this morning. No bright red bleeding per rectum or dark tarry stools. Patient reports a history of a small bowel obstruction about 15 years ago that was treated conservatively. Patient denies any other recent illnesses, fevers, chills. No chest pain, shortness of breath, palpitations. Denies lightheadedness, dizziness, diaphoresis, syncopal events. No urinary symptoms. In the ED, CT ABD/pelvis is showing partial small bowel obstruction. Patient is hemodynamically stable, labs are unremarkable. Patient received IV ketorolac, IV Zofran, IVF. Admission Exam Per Admitting Provider Constitutional: WD/WN, vitals as above Eyes: PERRL, conjunctivae normal, anicteric sclerae ENMT: external ear and nose normal, oropharynx normal Respiratory: normal respiratory effort, lungs clear to auscultation Cardiovascular: Rate/Rhythm: regular rate and regular rhythm Vessels: normal peripheral pulses Extremities: no edema Gastrointestinal (Abdomen): Inspection/Auscultation: + abdomen distended and normal bowel sounds Percussion/Palpation: + abdomen tender (Generalized) and abdomen soft; no hepatosplenomegaly Musculoskeletal: no cyanosis or clubbing, extremities motor strength 5/5 Skin: no rashes, warm and dry Neurologic: PERRL, EOMI, accommodation nl, no face palsy, no dysarthria Psychiatric: A+Ox3, euthymic affect Principal Diagnosis Partial small bowel obstruction: History of PSVT (paroxysmal supraventricular tachycardia): Bradycardia Discharge Exam General- No acute distress Head- atraumatic Eyes- PERRL, EOMI, ENT- oropharynx clear Neck- supple, no JVD Lungs- clear to auscultation Heart- regular rhythm; no murmur Abdomen- + bowel sound, +mild distended, non Tenderness Extremities- no calf tenderness Neuro- alert, oriented x 3; PERRL, EOMI; no facial palsy; no dysarthria Skin- warm & dry Discharge Data Allergies Allergy/AdvReac Type Severity Reaction Status Date / Time No Known Allergies Allergy Verified 11/25/21 14:59 Consultations 11/25/21 16:53 ED Decision to Admit Stat 11/25/21 20:39 Consult General Surgery Routine Ordered Studies 11/25/21 14:37 CT abd pelvis IV con only Stat 11/29/21 07:49 FL small bowel follow through Routine FLUOROSCOPIC SMALL BOWEL FOLLOW-THROUGH CLINICAL HISTORY: Small bowel obstruction. COMPARISON STUDY: Abdominal CT dated 11/25/2021. TECHNIQUE: An abdominal induction coordination power engineer radiograph was performed. The patient consumed approximately 600 cc of a mixture of Optiray 300 and water and a small follow- through was performed. Overhead radiographs and spot compression images were obtained. FINDINGS: The abdominal induction coordination power engineer radiograph shows no radiographic evidence of bowel obstruction. No evidence of intraperitoneal free air is identified. There are no abnormal abdominal calcifications. Phleboliths are seen in the pelvis. The skeletal structures are osteopenic and appear intact. On the small bowel follow-through, there is normal transit time with contrast identified in the colon at 20 minutes. There are mildly distended small bowel loops with no evidence of obstruction. Fold thickening is noted in the distal small bowel. There is no evidence of stricture or mass. The distal/terminal ileum are not well visualized on the spot compression views. Fluoroscopy time: 1.2 minutes Fluoroscopic images: 3 overhead radiographs and 9 spot compression views. IMPRESSION: 1. There is no evidence of a small bowel obstruction. 2. Fold thickening is noted in the distal small bowel. ACT 112: Negative or not required by law. Electronically signed by: Willie Sinha M.D. 11/29/2021 9:26 AM Dictated:11/29/21920 Transcribed: 11/29/21920 XR KUB/Abdomen 1 view CLINICAL HISTORY: SBO TECHNIQUE: 1 view of the abdomen was obtained. Comparison: Comparison is made to abdomen radiograph 11/27/2021 FINDINGS: Lung bases are unremarkable. The osseous structures are grossly unremarkable. Gas distended loops of small bowel are again seen measuring up to 44 mm. Gas remains in the colon. A small amount of stool is seen. IMPRESSION: Redemonstration of partial small bowel obstruction. ACT 112: Negative or not required by law. Electronically signed by: Josh Pedro M.D. 11/28/2021 10:18 AM Dictated:11/28/21 1017 Transcribed: 11/28/21 1017 XR KUB/Abdomen 1 view CLINICAL HISTORY: Follow SBO TECHNIQUE: 1 view of the abdomen was obtained. Comparison: Comparison is made to CT abdomen pelvis 11/25/2021 FINDINGS: Lung bases are unremarkable. The osseous structures are grossly unremarkable. Multiple dilated loops of bowel are seen measuring up to 36 mm. A small amount of gas remains in the colon. A moderate amount of stool is noted within the large bowel. IMPRESSION: Multiple dilated loops of bowel compatible with continued partial small bowel obstruction. ACT 112: Negative or not required by law. Electronically signed by: Josh Pedro M.D. 11/27/2021 10:26 AM Dictated:11/27/21 1025 Transcribed: 11/27/[address] abd pelvis IV con only CLINICAL HISTORY: lower abd pain 2 days, hx colon surgery childhood TECHNIQUE: Helical axial images of the abdomen and pelvis were obtained and displayed. Automated dose lowering techniques and/or adjustment according to patient size were utilized for this exam. This exam was performed with intravenous contrast. COMPARISON: None available at the time of this dictation. FINDINGS: Lower chest: There is a small right pleural effusion with associated atelectasis. Liver: Unremarkable. No focal lesions are seen. Gallbladder and biliary tree: No calcified gallstones. Normal caliber wall. No intra- or extrahepatic biliary ductal dilation. Pancreas: Unremarkable, no focal lesions. Spleen: Unremarkable. Adrenals: Unremarkable. 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 A renal cyst is seen on the left. Bladder: Limited evaluation due to underdistention. Reproductive organs: Unremarkable. Bowel: Multiple dilated loops of small bowel are seen measuring up to 34 mm in diameter. The colon is not decompressed. Lymph nodes Retroperitoneal: Unremarkable. Mesenteric: Unremarkable. Pelvic: Unremarkable. Peritoneum: Mild ascites is noted. Vessels: Unremarkable. Abdominal wall: Unremarkable. Bones: Unremarkable. IMPRESSION: Multiple dilated loops of bowel without transition point or colonic decompression. Findings likely reflect partial small bowel obstruction. ACT 112: Negative or not required by law. Electronically signed by: Josh Pedro M.D. 11/25/2021 4:16 PM Dictated:11/25/21 1610 Transcribed: 11/25/21 161 Hospital Course (1) Partial small bowel obstruction: Patient presenting from home with reports of generalized abdominal pain and nausea. SBO possible related to peritoneal adhesions from colon surgery as a child CT ABD/pelvis on admission showing partial small bowel obstruction KUB showed Multiple dilated loops of bowel compatible with continued partial small bowel obstruction. Surgery on board and recommended conservative management Small bowel through xray showed no evidence of a small bowel obstruction. Continue IVF and pain management prn Diet advanced as tolerated Will encourage patient to ambulate around Will discharge home once stable from surgery standpoint (2) History of PSVT (paroxysmal supraventricular tachycardia): On atenolol Bradycardia Possible related to Atenolol she takes for PSVT Asymptomatic Will encourage pt to walk around that might help with the HR If becomes symptomatic or HR drops further, will consider to decrease or hold Atenol Disposition Possible discharge home today (3) DVT prophylaxis: SCDs/ ambulate ( in case pt wants for surgery) Total Time Total Time Spent Total Time Spent (In Minutes): 35 minutes Discharge Plan Discharge Items Patient Disposition: Home - Self-Care Reason For Visit: ABDOMINAL PAIN Discharge Diagnosis: Partial Small bowel obstruction Activity: Resume your previous activity Non-emergency contact: Primary Care Provider Call non-emergency contact if: you have any medication questions and your symptoms worsen Follow-up/Referrals: Allan Martin MD [Primary Care Provider] - (Date & Time 12/02/2021 3:00 PM Provider Allan Martin MD [facility] ) Diet: Low Fiber Addtl Attending Provider Instructions: Follow up with primary care provider 12/02/2021 3:00 PM Allan Martin MD [facility] Continue Low fiber diet and advance as tolerated Pending Studies at Discharge: No Stand-Alone Forms: [facility], Work/School Release, Smoking Cessation Medications and DC Order Prescriptions: Continued Premarin 0.625 mg/gram cream 1 applic vaginal WK RF: 0 atenolol 25 mg tablet 25 mg PO DAILY RF: 0 Discharge Orders: Discharge Order (Routine); Ordered 11/29/21 Ordered By: Miguel Valerio/Other Patient Handouts: Small Bowel Obstruction, Low-Fiber Diet, Anatomy of the Digestive System Admission Data Admit Date/Time: 11/25/21 16:55 Attending Provider: Miguel Mccain Admit Provider: Abdoulaye Campo Primary Care Provider: Allan Martin Other Providers: Abdoulaye Campo ; Kenny Singh Other Interventions: Discharge Summary Assessment (RN) Last Done: 11/29/21 17:15
== END 2021-11-29 17:51 | disposition home or self-care (01) | DRG 389 ==
LOC: ED 14:03 → SUATTDRO 16:55 → 3N 16:55
DX: T44.7X5A Adverse effect of beta-adrenoreceptor antagonists, initial encounter; I47.1 Supraventricular tachycardia; R00.1 Bradycardia, unspecified; K56.51 Intestinal adhesions [bands], with partial obstruction; Z87.738 Personal history of other specified (corrected) congenital malformations of digestive system